=== PATIENT | male | born 1960 | race Caucasian/White ===

== ENCOUNTER 2018-01-19 19:39 | Inpatient (IN) | payer MEDICAID ==
[~2018-01-19] VITALS: Ht 165.1 cm; Wt 86.2 kg
[~2018-01-19 19:39] MED LIST: BACDS PO; BUS10 PO; CLA10 PO; NOR5 PO; PROL PO; SING10 PO
[2018-01-19 20:28] LABS: PLATELET COUNT 76 x10^3mcL (130-400); RED CELL DISTRIBUTION WIDTH 17.9 % (11.5-14.5)
[2018-01-19 20:31] LABS: CALCIUM 7.9 mg/dL (8.5-10.1); CARBON DIOXIDE 22.4 mmol/L (21-32); CHLORIDE SERUM 105 mmol/L (98-107); CREATININE SERUM 0.9 mg/dL (0.7-1.3); GFR1 > 60 mL/min; GLUCOSE SERUM 139 mg/dL (74-106); POTASSIUM SERUM 3.6 mmol/L (3.5-5.1); SODIUM SERUM 140 mmol/L (136-145)
[2018-01-19 20:35] LABS: ALKALINE PHOSPHATASE 53 U/L (46-116); ALT/SGPT 33 U/L (16-63); AMYLASE 43 U/L (25-115); AST/SGOT 34 U/L (15-37); BILIRUBIN TOTAL 0.55 mg/dL (0.20-1.00); LIPASE 235 IU/L (73-393)
[2018-01-19 20:45] LABS: BAND NEUTROPHIL 3 % (0-10); BASOPHIL 0 % (0-2); MONOCYTE 14 % (0-7); SEGMENTED NEUTROPHILS 71 % (37-75); rbc morphology (normal/abnorm) ABNORMAL (NORMAL)
[2018-01-19 23:02] LABS: UA SPECIFIC GRAVITY >=1.030 (1.005-1.035); microscopic required? YES; urine erythrocyte TRACE (NEGATIVE)
[2018-01-20 01:18] LABS: MAGNESIUM 1.7 mg/dL (1.8-2.4); PHOSPHOROUS 3.5 mg/dL (2.5-4.9)
[2018-01-20 01:26] LABS: FREE T4 0.73 ng/dL (0.76-1.46); T4(THYROXINE) 6.2 ug/dL (4.7-13.3)
[2018-01-20 01:28] LABS: T3 TOTAL 0.85 ng/mL
[2018-01-20 01:40] LABS: CHOLESTEROL/HDL RATIO 4.9
[2018-01-20 02:06] LABS: AMPHETAMINE QUAL UR NONE DETECTED (See below)
[2018-01-20 02:39] VITALS: BP 144/86
[2018-01-20 03:28] VITALS: BP 144/86
[2018-01-20 05:44] VITALS: BP 145/85
[2018-01-20 06:38] LABS: CALCIUM 8.1 mg/dL (8.5-10.1); CARBON DIOXIDE 24.1 mmol/L (21-32); CHLORIDE SERUM 105 mmol/L (98-107); CREATININE SERUM 0.8 mg/dL (0.7-1.3); GFR1 > 60 mL/min; GLUCOSE SERUM 111 mg/dL (74-106); MAGNESIUM 1.5 mg/dL (1.8-2.4); PHOSPHOROUS 3.2 mg/dL (2.5-4.9); POTASSIUM SERUM 3.8 mmol/L (3.5-5.1); SODIUM SERUM 140 mmol/L (136-145)
[2018-01-20 06:43] LABS: PLATELET COUNT 59 x10^3mcL (130-400); RED CELL DISTRIBUTION WIDTH 17.7 % (11.5-14.5)
[2018-01-20 08:48] VITALS: BP 139/80
[2018-01-20 11:02] LABS: MONOCYTE 16 % (0-7); SEGMENTED NEUTROPHILS 68 % (37-75)
[2018-01-20 11:03] LABS: BAND NEUTROPHIL 7 % (0-10); BASOPHIL 0 % (0-2); METAMYELOCTE 1 % (0-2); MYELOCYTE 1 % (0-2); rbc morphology (normal/abnorm) ABNORMAL (NORMAL)
[2018-01-20 11:04] LABS: tear drop cell (dacryocyte) 1+
[2018-01-20 11:05] LABS: PLATELET MORPHOLOGY PLATELETS DECREASED
[2018-01-20] MEDS ORDERED: LIBRAX1 CAP PO (11:59)
[2018-01-20 13:02] VITALS: BP 139/80
== END 2018-01-20 14:07 | disposition home or self-care (01) ==
LOC: ED 19:39 → MU 01-20 00:14
PROVIDERS: Emergency Medicine; Family Medicine
DX: K80.20 Calculus of gallbladder without cholecystitis without obstruction (principal); N17.0 Acute kidney failure with tubular necrosis; G92 Toxic encephalopathy; C95.10 Chronic leukemia of unspecified cell type not having achieved remission; T51.0X1A Toxic effect of ethanol, accidental (unintentional), initial encounter; F10.239 Alcohol dependence with withdrawal, unspecified; F10.220 Alcohol dependence with intoxication, uncomplicated; I10 Essential (primary) hypertension; E83.51 Hypocalcemia; E83.42 Hypomagnesemia; E78.1 Pure hyperglyceridemia; R80.9 Proteinuria, unspecified; J44.9 Chronic obstructive pulmonary disease, unspecified; Z87.891 Personal history of nicotine dependence; Z87.820 Personal history of traumatic brain injury; Z86.73 Personal history of transient ischemic attack (TIA), and cerebral infarction without residual deficits; Y90.7 Blood alcohol level of 200-239 mg/100 ml; Y92.009 Unspecified place in unspecified non-institutional (private) residence as the place of occurrence of the external cause
CPT/HCPCS: 83880; 84439; 94150; C9113; G0480; J2765; J3411; J3490; J7030; Q0092

== ENCOUNTER 2018-11-12 23:04 | Inpatient (IN) | payer OTHER ==
[~2018-11-12] VITALS: Ht 165.1 cm; Wt 85.0 kg
[~2018-11-12 23:04] MED LIST changes: +LIBRAX1 CAP PO
[2018-11-12 23:10] VITALS: Ht 165.1 cm; Wt 85.0 kg
--- NOTE | 2018-11-12 23:20 | NUR ---
PT PRESENTS TO ED BROUGHT IN BY FRIEND C/O CHEST PAIN. PT STATES THAT HE HAS A DRINKING PROBLEM AND BINGE DRINKS. PT STATES HX OF CARDIAC STENTS. PT HAS FLIGHT OF IDEAS AND IS SPEAKING NONLINEARLY. PT JUMPS AROUND AND IS UNABLE TO RECALL FULL STORY. PT ALSO STATES HE IS HEARING VOICES. PT DENIES ANY SUICIDAL OR HOMICIDAL IDEATION. PT ALSO STATES THAT THE VOICES ARE NOT TELLING HIM TO HURT HIMSELF OR ANYONE ELSE JUST TO "SHUT UP AND LISTEN" . PT CONNECTED TO ALL MONITORS AND APPEARS ANXIOUS WITH VISBLE SHAKING OF LEGS AND HANDS. PT STATES HIS CHEST PAIN IS 10/10 AND DOES NOT KNOW WHAT HE WAS DOING WHEN IT STARTED OR IF IT RADIATES. PT STATES HE SLEEPS ON HIS MOTHERS COUCH AND WAS BROUGHT IN BY A FRIEND. PT DOES NOT RECALL HOW MUCH HE HAD TO DRINK OR WHEN HIS LAST DRINK WAS BUT HE STATES THAT IT WAS TODAY. PT CONNECTED TO ALL MONITORS. AWAITING MSE. NAD AT THIS TIME
--- NOTE | 2018-11-12 23:30 | NUR ---
PT HAS DIMINISHED LUNG SOUNDS IN THE BASES WELL FINE CRACKLES HEARD IN THE BILATERAL UPPER LOBES
--- NOTE | 2018-11-12 23:51 | NUR ---
MD GAYTAN AT BEDSIDE FOR MSE
--- NOTE | 2018-11-13 00:01 | NUR ---
PT IS ALERT AND ORIENTED TO NAME, , SITUATION BUT DOES NOT KNOW THE YEAR OR WHAT HOSPITAL THIS IS
[2018-11-13 00:48] LABS: PLATELET COUNT 22 x10^3mcL (130-400); RED CELL DISTRIBUTION WIDTH 19.4 % (11.5-14.5)
[2018-11-13 00:50] LABS: CALCIUM 7.9 mg/dL (8.5-10.1); CARBON DIOXIDE 25.7 mmol/L (21-32); CHLORIDE SERUM 103 mmol/L (98-107); CREATININE SERUM 0.9 mg/dL (0.7-1.3); GFR1 > 60 mL/min; GLUCOSE SERUM 199 mg/dL (74-106); POTASSIUM SERUM 3.1 mmol/L (3.5-5.1); SODIUM SERUM 143 mmol/L (136-145)
[2018-11-13 00:55] LABS: ALBUMIN 3.9 g/dL (3.4-5.0); ALKALINE PHOSPHATASE 40 U/L (46-116); ALT/SGPT 47 U/L (16-63); AST/SGOT 39 U/L (15-37); BILIRUBIN TOTAL 0.6 mg/dL (0.20-1.00); TOTAL PROTEIN, SERUM 6.5 g/dL (6.4-8.2)
[2018-11-13 01:06] LABS: ATYPICAL LYMPH 2 %; MONOCYTE 32 % (0-7); SEGMENTED NEUTROPHILS 48 % (37-75)
[2018-11-13 01:09] LABS: PLATELET MORPHOLOGY PLATELETS DECREASED; rbc morphology (normal/abnorm) ABNORMAL (NORMAL); schistocyte (helmet cell) 1+; tear drop cell (dacryocyte) 1+
--- NOTE | 2018-11-13 01:51 | NUR ---
PT TAKEN TO RADIOLOGY
--- NOTE | 2018-11-13 02:14 | NUR ---
PT AMBULATING TO RESTROOM TO PROVIDE URINE SAMPLE
--- NOTE | 2018-11-13 02:37 | NUR ---
LAB AT BEDSIDE FOR BLOOD DRAW
[2018-11-13 03:04] LABS: UA SPECIFIC GRAVITY >=1.030 (1.005-1.035); microscopic required? YES; urine erythrocyte 1+ (NEGATIVE)
[2018-11-13 03:11] LABS: AMPHETAMINE QUAL UR NONE DETECTED (See below)
--- NOTE | 2018-11-13 05:25 | NUR ---
PT AXO X4 CURRENTLY AWARE OF THE DATE
--- NOTE | 2018-11-13 05:26 | NUR ---
PT STATES HE USES OXYGEN AT HOME AT NIGHT AT 2L NC
--- NOTE | 2018-11-13 05:30 | NUR ---
REPORT GIVEN TO TREY TURNER. PER TREY PLEASE WAIT A FEW MINUTES SO SHE CAN DO MED PASS.
[2018-11-13 05:33] LABS: MAGNESIUM 1.7 mg/dL (1.8-2.4); PHOSPHOROUS 3.9 mg/dL (2.5-4.9)
[2018-11-13 05:35] LABS: CHOLESTEROL/HDL RATIO 3.9
--- NOTE | 2018-11-13 06:19 | NUR ---
RECEIVED PT FROM ED VIA RONALD, ACCOMPANIED BY RN. NO SOB ON O2 2L VIA VT. PT SLEEPY. GARBLED SPEECH. REFUSED LAB DRAW THIS MORNING. PT STATES HE WANTS IT DONE AFTER BREAKFAST. IV TO RFA, NS INFUSING. SAFETY MEASURES IN PLACE. BED IN LOWEST POSITION. SIDE RAILS UP X2. DEMONSTRATED HOW TO USE THE CALL LIGHT. CALL LIGHT WITHIN REACH. INSTRUCTED PT TO CALL FOR ASSISTANCE WHEN HE WANTS TO GET UP TO USE THE BATHROOM FOR SAFETY.
[2018-11-13 06:20] VITALS: BP 144/83
--- NOTE | 2018-11-13 07:10 | NUR ---
RECEIVED BEDSIDE REPORT FROM FISH HATCHERY LABORER NURSE AT THIS TIME. PATIENT RESTING COMFORTABLY IN BED. NO APPARENT DISTRESS OR DISCOMFORT NOTED. BREATHING EVEN AND UNLABORED. NO RESPIRATORY DISTRESS NOTED. NO INDICATION OF CHEST PAIN/PRESSURE AT THIS TIME. IV PATENT AND INTACT. ALL QUESTIONS AND CONCERNS ADDRESSED. ALL NEEDS ATTENDED TO. WILL CONTINUE TO MONITOR
[2018-11-13 08:18] VITALS: BP 137/80
[2018-11-13 09:18] VITALS: BP 137/80
--- NOTE | 2018-11-13 10:00 | NUR ---
ALL MORNING MEDICATIONS ADMINISTERED AT THIS TIME. PATIENT TOLERATED WELL. NO APPARENT DISTRESS OR DISCOMFORT NOTED. ALL NEEDS ATTENDED TO. WILL CONTINUE TO MONITOR
--- NOTE | 2018-11-13 11:04 | NUR ---
PATIENT REQUESTING HOME MEDICATIONS. ASKED PATIENT WHAT MEDICATION HE IS TAKING AT HOME. PATIENT CANNOT RECALL MEDICATION OR DOSAGES. CALLED PATIENTS DAUGHTER DEV. PER DEV, SHE DOES NOT HAVE THE LIST IN FRONT OF HER. PROVIDED [place] NUMBER AND INFORMED HER IF SHE HAS ANY INFORMATION REGARDING HOME MEDICATIONS TO CALL BACK. SHE VERBALIZES SHE WILL. AWAITING CALL BACK AT THIS TIME
--- NOTE | 2018-11-13 12:25 | NUR ---
SPOKE TO KENNA JACK REGARDING ROUTE ADMINISTRATION FOR ATIVAN 1MG. PER KENNA JACK OKAY TO CHANGE ROUTE FROM NG TO PO VIA TELEPHONE ORDER. TELEPHONE ORDER READ BACK, CONFIRMED, AND FOLLOWED THROUGH. ALL NEEDS ATTENDED TO. WILL CONTINUE TO MONITOR
[2018-11-13 12:27] VITALS: BP 131/80
--- NOTE | 2018-11-13 13:47 | NUR ---
PATIENT C/O GENERALIZED BODY PAIN AT THIS TIME. PATIENT MEDICATED WITH NORCO PRN. PATIENT TOLERATED WELL. NO APPARENT DISTRESS OF DISCOMFORT NOTED. ALL NEEDS ATTENDED TO. WILL CONTINUE TO MONITOR
--- NOTE | 2018-11-13 17:30 | NUR ---
PATIENT SITTING UP ON SIDE OF BED EATING DINNER AT THIS TIME. PATIENT TOLERATING DIET WELL. NO APPARENT DISTRESS OR DISCOMFORT NOTED. ALL NEEDS ATTENDED TO. WILL CONTINUE TO MONITOR
[2018-11-13 17:41] VITALS: BP 144/79
--- NOTE | 2018-11-13 18:42 | NUR ---
PATIENT RESTING COMFORTABLY IN BED AT THIS TIME. NO APPARENT DISTRESS OR DISCOMFORT NOTED. IV PATENT AND INTACT. ALL QUESTIONS AND CONCERNS ADDRESSED. ALL NEEDS ATTENDED. SAFETY PRECAUTIONS MAINTAINED. WILL ENDORSE ALL CARE TO TAG MAKER NURSE.
--- NOTE | 2018-11-13 19:25 | NUR ---
RECEIVED PT RESTING IN BED, NO ACUTE DISTRESS NOTED. PT AOX4, DENIES TANG. PT REPORTS SLIGT DIZZINESS. EDUCATED PT THE S/E OF MEDICATION (LIBRIUIM), ENCOURAGED PT TO USE CALL LIGHT FOR ASSISTANCE TO ENSURE SAFETY. PT VERBALIZES UNDERSTANDING. PT HX OF ETOH ABUSE, SZ PRECAUTIONS IN PLACE. TELE #16, ST 108, DENIES CP. PULSES PALPABLE BILAT, DENIES NUMBNESS/TINGLING IN FEET. RESP EVEN AND UNLABORED ON RA, DENIES SOB. ABD SOFT, ROUND, REPORTS ABD PAIN LUQ (SHARP & INTERMITTENT) WILL MEDICATE PER ORDER, DENIES N/V/D. BOWEL SOUNDS ACTIVE X4 QUAD. PT DENIES BM SINCE ADMISSION. VPIDS FREELY. GENERALIZED WEAKNESS, AMB W/ CANE AT HOME. PT DEMONSTRATES SLOW/STEADY GAIT. SKIN INTACT. IV SITE TO THE RFA PATENT, NS @ 100ML/HR. NO REDNESS, SWELLING OR PAIN NOTED. ALL COMFRT AND SAFETY MEASURES PROVIDED FOR, CALL LIGHT WITHIN REACH, BED IN LOWEST POSITION, WILL CONTINUE TO MONITOR.
[2018-11-13 21:51] VITALS: BP 136/81
[2018-11-14] VITALS (8 sets, daily range): BP systolic 86–120; BP diastolic 48–69
--- NOTE | 2018-11-14 05:00 | NUR ---
PT RESTED IN INTERVALS DURING SHIFT, PT HAD EPISODES OF DRY HEAVING WITHOUT ACTUAL EMESIS ALTHOUGH NOW PATIENT VOMITING 4-5 SMALL PIECES OF UNDIGESTED [place]MELON (PER PT), MEDICATED PT WITH ZOFRAN AND MORPHINE, WILL MEDICATE PT WITH ATIVAN FOR ANXIETY. PT HAS EPISODES OF AGITATION THEN PT GOES BACK TO SLEEP. PT HAS INTERMITTENT SWEATING, NO TEMPERATURE NOTED DURING SHIFT. IV SITE REMAINS PATENT TO RFA NS @ 100ML/HR. NO REDNESS, SWELLING OR PAIN NOTED. ALL COMFORT AND SAFETY MEASURES PROVIDED FOR, CALL LIGHT WITHIN REACH, BED IN LOWEST POSITION, WILL CONTINUE TO MONITOR.
--- NOTE | 2018-11-14 05:30 | NUR ---
PT AGITATED AND ANXIOUS, TOSSING FROM SIDE TO SIDE. OBTAINED ORDER FOR ONE TIME DOSE OF ATIVAN, 1MG IVP. WILL MEDICATE ORDER.
--- NOTE | 2018-11-14 05:45 | NUR ---
PT DIAPHORETIC, SPOT CHECK PT SUGAR= 240, WILL CONTINUE TO MONITOR. RESIDENT MADE AWARE.
--- NOTE | 2018-11-14 06:00 | NUR ---
INFORMED RESIDENT OF THE PATIENT SUSTAINING 150-160'S HR, BLOOD PRESSURE 80'S/40'S. PT SWEATING AND LETHARGIC. RESIDENT WILL PUT IN ORDER FOR STAT EKG. WILL WAIT FOR RESULTS.
[2018-11-14 07:01] LABS: CALCIUM 8.7 mg/dL (8.5-10.1); CARBON DIOXIDE 16.7 mmol/L (21-32); CHLORIDE SERUM 102 mmol/L (98-107); GFR1 > 60 mL/min; GLUCOSE SERUM 305 mg/dL (74-106); POTASSIUM SERUM 3.7 mmol/L (3.5-5.1); SODIUM SERUM 138 mmol/L (136-145)
--- NOTE | 2018-11-14 07:15 | NUR ---
RECEIVED BEDSIDE REPORT FROM EPIC APPLICATION COORDINATOR NURSE. PATIENT RESTING COMFORTABLY IN BED. NO APPARENT DISTRESS OR DISCOMFORT NOTED. 2L NC IN PLACE AND TOLERATING WELL. NO RESPIRATORY DISTRESS NOTED AT THIS TIME. NO INDICATION OF SHORTNESS OF BREATH. PATIENT DENIES CHEST PAIN/PRESSURE. IV PATENT AND INTACT. BLOOD PRESSURE TAKEN AT THIS TIME 97/56 (74) HR 155. BOLUS INFUSING AT THIS TIME. ALL QUESTIONS AND CONCERNS ADDRESSED. ALL NEEDS ATTENDED TO. WILL CONTINUE TO MONITOR
[2018-11-14 07:26] LABS: PLATELET COUNT 10 x10^3mcL (130-400)
--- NOTE | 2018-11-14 07:57 | NUR ---
TIE BINDER GUERO MADE AWARE OF PATIENT WBC 36.1 AND PLT 10 AT THIS TIME. TIE BINDER GUERO TO GET A REPEAT OF LABS. AWAITING ORDER AT THIS TIME. PER KENNA JACK OKAY TO TELEPHONE ORDER CHANGE LIBRIUM ORDER FROM Q 12 PRN TO Q 8 SCHEDULED PER ETOH PROTOCOL. ORDER READ BACK, CONFIRMED, AND FOLLOWED THROUGH. WILL CONTINUE TO MONITOR
[2018-11-14 09:02] LABS: PLATELET COUNT 13 x10^3mcL (130-400); RED CELL DISTRIBUTION WIDTH 18.6 % (11.5-14.5)
--- NOTE | 2018-11-14 09:30 | NUR ---
KENNA JACK AWARE OF PATIENT WBC 41.8 AND PLT 13 AT THIS TIME. PER KENNA JACK SHE ORDERED BLOOD CULTURE AND CONSULTED DR FRANK. WILL PROCEED ORDERED. WILL CONTINUE TO MONITOR
[2018-11-14 09:45] LABS: SEGMENTED NEUTROPHILS 41 % (37-75)
[2018-11-14 09:46] LABS: ATYPICAL LYMPH 5 %; BAND NEUTROPHIL 2 % (0-10); BASOPHIL 0 % (0-2); MONOCYTE 51 % (0-7)
[2018-11-14 09:47] LABS: PATH REVIEW for HEMA YES; PLATELET MORPHOLOGY PLATELETS DECREASED
--- NOTE | 2018-11-14 10:00 | NUR ---
ALL MORNING MEDICATIONS ADMINISTERED AT THIS TIME. PATIENT TOLERATED MEDICATION WELL. NO ADVERSE EFFECTS NOTED. ALL NEEDS ATTENDED TO. WILL CONTINUE TO MONITOR
[2018-11-14 10:57] LABS: rbc morphology (normal/abnorm) ABNORMAL (NORMAL)
[2018-11-14 10:58] LABS: burr cell (echinocyte) 1+; ovalocyte/elliptocyte 1+
[2018-11-14 11:07] LABS: BAND NEUTROPHIL 5 % (0-10); BASOPHIL 0 % (0-2); MONOCYTE 47 % (0-7); PLATELET MORPHOLOGY PLATELETS DECREASED; SEGMENTED NEUTROPHILS 42 % (37-75); rbc morphology (normal/abnorm) ABNORMAL (NORMAL)
[2018-11-14 11:08] LABS: burr cell (echinocyte) 1+; ovalocyte/elliptocyte 1+
--- NOTE | 2018-11-14 13:00 | NUR ---
RECEIVED HOME MED LIST FROM PATIENTS BROTHRICHARD RODRÍGUEZ AT THIS TIME. MEDICATION REC UPDATED AT THIS TIME. SPOKE TO POLY PACKER AND HEAT SEALER GUERO TO CONTINUE PATIENT MEDICATION. AWAITING ORDERS AT THIS TIME. WILL CONTINUE TO MONITOR
[2018-11-14] MEDS ORDERED: HYDROXYUREA500 MG PO (13:02)
[2018-11-14] MEDS ORDERED: NOR5 PO (13:03)
[2018-11-14] MEDS ORDERED: TRAZODONE50 M1 PO (13:05)
[2018-11-14] MEDS ORDERED: SIMVASTATIN20 M1 PO (13:06)
[2018-11-14] MEDS ORDERED: FLOMAX0.4 MG PO (13:07)
[2018-11-14] MEDS ORDERED: METFORMIN HCL500 MG PO (13:07)
[2018-11-14] MEDS ORDERED: ENALAPRIL MALEA10 MG PO (13:08)
[2018-11-14] MEDS ORDERED: CLARITIN10 MG PO (13:09)
--- NOTE | 2018-11-14 14:09 | NUR ---
DR LIRIANO AT BEDSIDE REVIEWING POC WITH PATIENT AT THIS TIME. ALL QUESTIONS AND CONCERNS ADDRESSED. ALL NEEDS ATTENDED TO. WILL CONTINUE TO MONITOR
--- NOTE | 2018-11-14 14:27 | NUR ---
REPORTED TO KENNA JACK PATIENTS CHEST X-RAY RESULTS AT THIS TIME. NO NEW ORDERS MADE. ALL NEEDS ATTENDED TO. WILL CONTINUE TO MONITOR
--- NOTE | 2018-11-14 18:36 | NUR ---
PATIENT RESTING COMFORTABLY IN BED AT THIS TIME. NO APPARENT DISTRESS OR DISCOMFORT NOTED. IV PATENT AND INTACT. ALL QUESTIONS AND CONCERNS ADDRESSED SAFETY PRECAUTIONS MAINTAED. ALL NEEDS ATTENDED TO. WILL ENDORSE ALL CARE TO TRUCK PACKER NURSE
--- NOTE | 2018-11-14 18:47 | NUR ---
DR. FRANK AT BEDSIDE REVIEWING POC WITH PATIENT. ALL QUESTIONS AND CONCERNS ADDRESSED.
--- NOTE | 2018-11-14 19:25 | NUR ---
RECEIVED PT RESTING IN BED, NO ACUTE DISTRESS NOTED. PT AOX4, DENIES TANG. PT REPORTS SLIGHT DIZZINESS EARLIER WHEN GETTING UP, EDUCATED PT THE S/E OF MEDICATION (LIBRIUIM) AND OTHER BP MEDS, ENCOURAGED PT TO USE CALL LIGHT FOR ASSISTANCE TO ENSURE SAFETY. PT VERBALIZES UNDERSTANDING. PT HX OF ETOH ABUSE, SZ PRECAUTIONS IN PLACE. TELE #16, ST 120, DENIES CP. PULSES PALPABLE BILAT, DENIES NUMBNESS/TINGLING IN FEET. RESP EVEN AND UNLABORED ON 2L NC, DENIES SOB. ABD SOFT, ROUND, REPORTS ABD PAIN BILAT LQ ABD PAIN LIKE MUSCLE SORENESS. PT REPORTS HAVING MULTIPLE DRY HEAVING EPISODES. PAIN MAY BE DUE TO STRAINING OF ABD MUCLES. WILL MEDICATE PER ORDER, DENIES N/V/D. BOWEL SOUNDS ACTIVE X4 QUAD. PT REPORTS BM TODAY. VPIDS FREELY. GENERALIZED WEAKNESS, AMB W/ CANE AT HOME. PT UNSTABLE ON FEET AT THIS TIME, WILL IMPLEMENT SAFET YPRECUATIONS DURING SHIFT. SKIN INTACT. IV SITE TO THE RFA PATENT, NS @ 100ML/HR. NO REDNESS, SWELLING OR PAIN NOTED. ALL COMFRT AND SAFETY MEASURES PROVIDED FOR, CALL LIGHT WITHIN REACH, BED IN LOWEST POSITION, WILL CONTINUE TO MONITOR.
[2018-11-15] VITALS (8 sets, daily range): BP systolic 104–145; BP diastolic 54–74
--- NOTE | 2018-11-15 05:00 | NUR ---
PT RESTED IN INTERVALS DURING SHIFT, NO ACUTE CHANGES OCCURRING OVERNIGHT. PT HAD NO EPISODES OF VOMITING OR NATHAN HEAVING DURING SHIFT. PT REPORTS STOMACH PAIN HAS DECREASED SUBSTANTIALLY COMPARED TO LAST NIGHT. PT MEDICATED X1 WITH NORCO FOR STOMACH MUSCLE SORENESS. PT PROVIDED ONE DOSE OF LIBRIUM FOR AGITATION. PT HAD A BM THIS MORNING (DIARRHEA), DENIES PAIN WITH BM, PT VOIDED X2. DENIES DYSURIA. PT REMAINS ON 2LNC, DENIES SOB. IV SITE REMAINS PATENT, NS @ 100ML/HR. NO REDNESS, SWELLING OR PAIN NOTED. ALL COMFORT AND SAFETY MEASURES PROVIDED FOR, CALL LIGHT WITHIN REACH, BED IN LOWEST POSITION, WILL CONTINUE TO MONITOR.
[2018-11-15 06:20] LABS: CARBON DIOXIDE 27.8 mmol/L (21-32); CREATININE SERUM 1.4 mg/dL (0.7-1.3); POTASSIUM SERUM 4.1 mmol/L (3.5-5.1)
--- NOTE | 2018-11-15 07:30 | NUR ---
PT IS AAOX4. VERBALLY RESPONSIVE. FOLLOWS COMMANDS. DENIES H/A BUT STATES HE FEELS DIZZY. PT EDUCATED TO CALL FOR ASSISTANCE WHEN GETTING UP OUT OF BED. RESP EVEN AND UNLABORED. LUNG SOUNDS CTA BILATERALLY. ON 02 N/C AT 2 LPM. NO COUGH NOTED. ABDOMEN SOFT, NONTENDER, DISTENDED. BOWEL SOUNDS ACTIVE X4 QUADS. BM SOFT THIS A.M., DENIES DIARRHEA AT THIS TIME. DENIES N/V. PERIPHERAL PULSES PALPABLE. NO EDEMA NOTED. DENIES PAIN. TELEMONITOR [address] READING SINUS TACH 128. DENIES CHEST PAIN, PALPITATIONS AND PRESSURE. IVF RUNNING TO RFA. SITE WNL, NO INFILTRATION OR INFECTION NOTED. DENIES PAIN AT THIS TIME. PT IS SITTING UP AT BEDSIDE EATING BREAKFAST. JAMEL ALFORD NP MET WITH PT AND DISCUSSED POC. PT'S WBC ARE ELEVATED, JAMEL STATES THEY NEED TO FIND OUT WHY. ALSO PT'S ONCOLOGIST WILL BE CONTACTED AND ASKED TO REQUEST WHAT KIND OF TX SHOULD BE FOLLOWED UP WITH PT. CALL LIGHT WITHIN REACH. FALL PROTOCOL IN PLACE. BED IN LOWEST POSTION.
--- NOTE | 2018-11-15 10:38 | NUR ---
PT RECEIVING SKILLED P/T TRAINING AT THIS TIME. PT REFUSED TO WALK, STATED HE HIS DIZZY AND SICK.
--- NOTE | 2018-11-15 10:39 | NUR ---
PHYSICAL THERAPIST WAS ABLE TO GET PT UP OUT OF BED AND AMBULATED HIM WITH SAFETY BELT IN PLACE.
--- NOTE | 2018-11-15 11:20 | NUR ---
NOTED CBC RESULTS WITH H+H OF 5.8/17 PLT 10, FUR FEEDER ALFORD CALLED AND NOTIFIED, MADE AWARE PT DENIED ANY SIGN OF BLEEDING BUT IS TACHY IN 120S AND WAS IN 140S OVERNIGHT. PER FUR FEEDER WILL ORDER STAT REPEAT CBC TO COMFIRM RESULTS REQUESTED PT TO BE SL. NOTED ONLY MG RIDER INFUSING. ATTENDING NURSE MADE AWARE.
[2018-11-15 12:25] LABS: CARBON DIOXIDE 29.5 mmol/L (21-32); CHLORIDE SERUM 104 mmol/L (98-107); CREATININE SERUM 1.1 mg/dL (0.7-1.3); GFR1 > 60 mL/min; GLUCOSE SERUM 131 mg/dL (74-106); POTASSIUM SERUM 3.9 mmol/L (3.5-5.1); SODIUM SERUM 137 mmol/L (136-145)
[2018-11-15 12:47] LABS: RED CELL DISTRIBUTION WIDTH 18.7 % (11.5-14.5)
--- NOTE | 2018-11-15 12:49 | NUR ---
RECEIVED CRITICAL LAB VALUES FROM JEFFERSON IN LAB. REPORTED TO JAMEL ALFORD, TURBINE SUBASSEMBLER WBC 28.1, HGB 6.2, HCT 18, PLT 12. NO NEW ORDERS AT THIS TIME.
--- NOTE | 2018-11-15 13:30 | NUR ---
PT EDUCATED BY JAMEL ALFORD NP ON THE REASON PT WILL NEED A PRBC TRANSFUSION. CONSENT FOR BLOOD TRANSFUSION SIGNED AND PLACE IN PT'S CHART.
[2018-11-15 13:41] LABS: BAND NEUTROPHIL 2 % (0-10); BASOPHIL 0 % (0-2); MONOCYTE 44 % (0-7); PLATELET MORPHOLOGY PLATELETS DECREASED; SEGMENTED NEUTROPHILS 41 % (37-75); rbc morphology (normal/abnorm) ABNORMAL (NORMAL)
[2018-11-15 13:44] LABS: BAND NEUTROPHIL 1 % (0-10); BASOPHIL 0 % (0-2); MONOCYTE 65 % (0-7); SEGMENTED NEUTROPHILS 26 % (37-75)
[2018-11-15 13:45] LABS: PLATELET MORPHOLOGY PLATELETS DECREASED; rbc morphology (normal/abnorm) ABNORMAL (NORMAL)
[2018-11-15 14:05] LABS: PLATELET COUNT 12 x10^3mcL (130-400)
[2018-11-15 14:07] LABS: PLATELET COUNT 1011 x10^3mcL (130-400)
--- NOTE | 2018-11-15 16:17 | NUR ---
PT IS SITTING UP AT BEDSIDE VISITING WITH FAMILY. RESP EVEN AND UNLABORED. NO DISTRESS NOTED. CALL LIGHT WITHIN REACH.
--- NOTE | 2018-11-15 18:43 | NUR ---
PT RECEIVING BLOOD PRODUCT AT THIS TIME. RESP EVEN AND UNLABORED. NO DISTRESS NOTED. DENIES FEVER, CHILLS, BACK PAIN AND ITCHING. IV CATH TO RFA N/S LOCKED. SITE WNL. IV CATH TO LAC WITH BLOOD RUNNING. SITE WNL, NO S/S OF INFECTION OR INFILTRATION. TELE [address] READING SINUS TACH HR 128. CALL LIGHT WITHIN REACH. FALL PROTOCOL FOLLOWED. WILL ENDORSE ALL CARE TO NOC JOHNNY.
--- NOTE | 2018-11-15 19:40 | NUR ---
PT SEEN, RESTING IN BED, ALERT AND ORIENTED, DENIES HEADACHE BUT C/O OF DIZZINESS AT TIMES, BREATHING EVEN AND UNLABORED, LUNG SOUNDS CLEAR BUT DIMINISHED AT BASE, ON O2 2L VIA NC, NO RESP DISTRESS NOTED, ON TELE#16 ST, DENIES CHEST PAIN, PULSES PALPABLE, NO EDEMA NOTED, GENERALIZED WEAKNESS, ABD DISTENDED BUT SOFT WITH ACTIVE BS, NO BM AT THIS TIME, PT IS ONGOING WITH BLOOD TRANSFUSION, NO S&S OF ADVERSE REACTION NOTED, PT DENIES BLOODY STOOL, ECCHYMOSIS TO RUDDY, VOIDING FREELY, NO DISTRESS NOTED, WILL KEEP TO MONITOR.
--- NOTE | 2018-11-15 21:27 | NUR ---
FIRST UNIT OF PRBC BLOOD TRANSFUSION COMPLETED, NO S&S OF ADVERSE REACTION NOTED, VSS, TEMP-98.6, PULSE-116, BP-110/61, RR-20, SPO2:96%.
--- NOTE | 2018-11-15 21:42 | NUR ---
STARTING THE SECOND UNIT OF PRBC, TEMP-98.5, PULSE:111, RR:18, SPO2:96% ON ROOM AIR, LASIX 20MG PO AND BENADRYL 25 MG PO X 1 GIVEN, WILL CONTONUE TO MONITOR.
--- NOTE | 2018-11-15 21:57 | NUR ---
AFTER 15 MINS OF SECOND UNIT OF BLOOD TRANSFUSION, VSS, TEMP-98.6, HR:113, BP-145/73, RR:18, SPO2:96% ON ROOM AIR, NO S&S OF ADVERSE REACTION NOTED, WILL CONTINUE TO MONITOR.
[2018-11-16 00:50] VITALS: BP 123/69
--- NOTE | 2018-11-16 00:50 | NUR ---
2ND UNIT PRBC TRANSFUSION COMPLETED, TEMP-99.1, HR:120, BP-123/69, RR:18, SPO2:94%, NO S&S OF ADVERSE REACTION NOTED.
--- NOTE | 2018-11-16 00:55 | NUR ---
DR MASSEY MADE AWARE OF BLOOD TRANSFUSION COMPLETED.
--- NOTE | 2018-11-16 00:56 | NUR ---
PT C/O OF ABD PAIN, MORPHINE 2MG VIA IVP ADMINISTERED.
--- NOTE | 2018-11-16 05:53 | NUR ---
PT ASLEEP BUT EASILY AROUSABLE, SLEPT ON AND OFF WHOLE NIGHT, C/O OF ABD PAIN THROUGHOUT THE NIGHT, MEDICATED WITH NORCO PO AND MORPHINE IVP WITH MOD RELIEF, ABD DISTENDED BUT SOFT WITH ACTIVE BS, NO DISTRESS NOTED, WILL KEEP TO MONITOR.
[2018-11-16 06:21] VITALS: BP 99/60
[2018-11-16 06:40] LABS: CALCIUM 8.3 mg/dL (8.5-10.1); CARBON DIOXIDE 27.8 mmol/L (21-32); CHLORIDE SERUM 103 mmol/L (98-107); GFR1 > 60 mL/min; GLUCOSE SERUM 124 mg/dL (74-106); POTASSIUM SERUM 4.1 mmol/L (3.5-5.1); SODIUM SERUM 139 mmol/L (136-145)
--- NOTE | 2018-11-16 07:10 | NUR ---
RECEIVED PATIENT ASLEEP AROUSABLE, NO ACUTE DISTRESS NOTED. NO PAIN. TELE #16 NOTED. 2 IV SITE RFA AND LAC INTACT AND SL NOTED. POC EXPLAINED. CALL LIGHT WITHIN REACH.
--- NOTE | 2018-11-16 08:44 | NUR ---
LAB CALLED FOR WBC 35.7 AND PLTS COUNT 13, WILL INFORM GUERO PIERSON.
--- NOTE | 2018-11-16 09:27 | NUR ---
PATIENT WALKING IN HALLWAY TRY TO FIND THE DOCTOR, ASKING PATIENT TO GO BACK TO ROOM WILL SEE WHICH DOCTOR JUST SEE PATIENT. PATIENT BACK IN BED LATH TIER AT BEDSIDE TRY TO TAKE VITAL, HR 139 NOTED. ADMINISTERED ALL PO MEDS, NORCO 1 TAB FOR C/O 8/10 ABD PAIN AFTER EATING PER PATIENT. ROCEPIN IVPB INFUSING TO LAC PATENT, RFA IV LEAKING WHEN FLUSH, REMOVED. GAUZE APPLIED TO SITE. NO SWELLING NOTED. CALL LIGHT IN REACH. PER DR. BATES WILL SCHEDULE EGD IN AM.
[2018-11-16 09:54] VITALS: BP 143/78
[2018-11-16 11:53] LABS: BAND NEUTROPHIL 2 % (0-10); BASOPHIL 0 % (0-2); MONOCYTE 49 % (0-7); SEGMENTED NEUTROPHILS 39 % (37-75)
[2018-11-16 11:54] LABS: PLATELET MORPHOLOGY PLATELETS DECREASED
[2018-11-16 11:55] LABS: rbc morphology (normal/abnorm) ABNORMAL (NORMAL)
--- NOTE | 2018-11-16 12:03 | NUR ---
PATIENT RESTING IN BED NO COMPLAIN, OBTAINED CONSENT FOR EGD, PATIENT AWARE DR. BATES ALREADY SEEN AND EXPLAINED TO PATIENT, NO FURTHER QUESTIONS. PATIENT SIGNED. PER PATIENT METAL MELTER JUST CAME IN TO SEE PATIENT BUT STILL HAVE QUESTIONS AND WANT TO TALK TO DOCTOR. PER CN DR. MAXWELL WAS HERE TO SEE PATIENT. NO PROGRESS NOTED.
[2018-11-16 12:18] VITALS: BP 124/71
--- NOTE | 2018-11-16 12:40 | NUR ---
KENNA JACK WAS AWARE WBC 35.7 AND PLTS 13; PER GUERO LINDSEY INFORM HER TO TRANSFUSE NECESSARY, NO NEW ORDER AT THIS TIME.
--- NOTE | 2018-11-16 13:27 | NUR ---
PATIENT SAT UP AT SIDE OF BED C/O STOMACH HURT, PATIENT REPORT ONLY EAT HALF OF HIS MEAL AND GRAPES, NORCO 1 TAB PO AND DUE MEDS GIVEN. ABD PAIN 12/18. NEEDS MET. CONT TO MONITOR.
[2018-11-16 14:26] LABS: PLATELET COUNT 13 x10^3mcL (130-400)
--- NOTE | 2018-11-16 15:09 | NUR ---
ASSISTING PATIENT WITH SHOWER, GOWN AND BATH TOWEL AT BEDSIDE, PATIENT CHANGE HIS MIND, WANTED LATER STATED TIRED. CALL LIGHT WITHIN REACH.
--- NOTE | 2018-11-16 15:29 | NUR ---
DR. DAVIS WAS MADE AWARE FAMILY NOT AVAILABLE TO PARADI OPERATOR PATIENT.
[2018-11-16 16:10] VITALS: BP 132/67
--- NOTE | 2018-11-16 16:52 | NUR ---
GAVE REPORT TO NIGEL TURNER TO RESUME CARE.
--- NOTE | 2018-11-16 16:55 | NUR ---
ASSUMED CARE OF PATIENT. PT ASLEEP WITH NO ACUTE DISTRESS OR DISCOMFORT NOTED. FAMILY AT BEDSIDE.
--- NOTE | 2018-11-16 16:58 | NUR ---
PATIENT UP TO BATHROOM AND WANT TO SHOWER, PATIENT TOOK OFF TELE BOX LEFT ON TABLE. FAMILY MEMBER AT BEDSIDE. DUE MEDS GIVEN. NEEDS MET.
--- NOTE | 2018-11-16 17:17 | NUR ---
PT REFUSED [place] AT THIS TIME.
--- NOTE | 2018-11-16 17:41 | NUR ---
PT LINENS CHANGED FOR COMFORT. PT WITH NO ACUTE DISTRESS NOTED. ALL NEEDS MET AT THIS TIME. PT ABLE TO MAKE NEEDS KNOWN, CALL LIGHT WITHIN REACH. SAFETY MAINTAINED.
--- NOTE | 2018-11-16 18:42 | NUR ---
PT STABLE AT THIS TIME. NO ACUTE DISTRESS NOTED. ALL NEEDS TENDED TO THROUGHOUT SHIFT. WILL CONTINUE TO MONITOR AND ENDORSE CARE TO MECHANICAL INTEGRITY ENGINEER.
--- NOTE | 2018-11-16 19:08 | NUR ---
RECEIVED REPORT FROM NIGEL TURNER. ASSUMING ALL CARE
--- NOTE | 2018-11-16 19:30 | NUR ---
RECEIVED PT LAYING IN BED. PT IS A/OX4. SPEECH IS CLEAR. ABLE TO MAKE NEEDS KNOWN. PUPILS WITH BRISK RESPONSE TO LIGHT, 4 MM BILAT. DENIES TANG. EENT FREE OF DISCHARGE. ORAL MUCOSA PINK AND MOIST. NO JVD NOTED. BREATHING IS E/U ON RA. LUNGS SOUND CLEAR TO BUL AND DIMIN TO BLL. SYMMETRICAL CHEST EXPANSION NOTED. DENIES ANY SOB. S1/S2 HEART SOUNDS AUSCULTATED. CHEST WALL EQUAL AND SYMMETRICAL. NO S/S OF CP NOTED. PT ON TELE # [address] PALPABLE PULSE X3 EXTREMITIES. SKIN IS WARM AND DRY. NO EDEMA NOTED. LAC IV IN PLACE. CAP REFILL < [address] GENERALIZED WEAKNESS. NO JOINT SWELLING/DEFORMITY NOTED. ACTIVE FULL ROM X4 EXTREMITIES. PT IS ON CARDIAC DIET. NO N/V NOTED. ABD IS DISTENDED/FIRM/NONTENDER TO PALPATION. BOWEL SOUNDS ACTIVE X4 QUADRANTS. PT VOIDS FREELY VIA URINAL. SKIN IS INTACT. PT ABLE TO REPOSITION SELF INDEPENDENTLY. ECCHYMOSIS NOTED TO RUE. PT IS CALM AND COOPERATIVE. BED IN LOW POSITION. CALL LIGHT IN REACH. WILL CONT TO MONITOR
--- NOTE | 2018-11-16 20:53 | NUR ---
PT C/O ACHING ABD PAIN RATED 8/10. PT MEDICATED WITH MORPHINE IVP PER EMAR. WILL CONT TO MONITOR
[2018-11-16 20:54] VITALS: BP 112/71
--- NOTE | 2018-11-16 21:15 | NUR ---
SPOKE TO PT'S DAUGHTER, DEV, VIA TELEPHONE. UPDATED ON PT'S STATUS. ALL QUESTIONS/CONCERNS ADDRESSED AT THIS TIME
--- NOTE | 2018-11-16 22:35 | NUR ---
PT C/O FEELING SOB AFTER AMBULATING TO THE RESTROOM. PT PLACED ON 2 L NC. WILL CONT TO MONITOR
--- NOTE | 2018-11-17 | NUR ---
PT IS AWAKE/ALERT. PT AWARE HE IS TO REMAIN NPO AT THIS TIME. PT ALSO AWARE A STOOL SAMPLE IS NEEDED. BREATHING IS E/U ON 2 L NC. BED IN LOW POSITION. CALL LIGHT IN REACH. WILL CONT TO MONITOR
[2018-11-17 05:06] VITALS: BP 120/71
--- NOTE | 2018-11-17 05:07 | NUR ---
PT C/O LEFT-SIDED ACHING ABD PAIN RATED 9/10. PT MEDICATED WITH MORPHINE PER EMAR
--- NOTE | 2018-11-17 06:39 | NUR ---
REPORT GIVEN TO GI HVAC MECHANICAL ENGINEER, KJ. ALL QUESTIONS/CONCERNS ADDRESSED AT THIS TIME
[2018-11-17 07:02] LABS: CALCIUM 8.2 mg/dL (8.5-10.1); CARBON DIOXIDE 27.7 mmol/L (21-32); CHLORIDE SERUM 104 mmol/L (98-107); CREATININE SERUM 0.9 mg/dL (0.7-1.3); GFR1 > 60 mL/min; GLUCOSE SERUM 123 mg/dL (74-106); POTASSIUM SERUM 3.5 mmol/L (3.5-5.1); SODIUM SERUM 141 mmol/L (136-145)
--- NOTE | 2018-11-17 07:05 | NUR ---
REPORT GIVEN TO LOVE TURNER. ALL QUESTIONS/CONCERNS ADDRESSED AT THIS TIME. ENDORSING ALL CARE
[2018-11-17 07:45] LABS: RED CELL DISTRIBUTION WIDTH 17.9 % (11.5-14.5)
[2018-11-17 07:48] LABS: PLATELET COUNT 15 x10^3mcL (130-400)
--- NOTE | 2018-11-17 08:07 | NUR ---
PATIENT WENT DOWN FOR EGD AT THIS TIME, TAKEN DOWN VIA GURNEY. TELE GALLEY STRIPPER MADE AWARE.
--- NOTE | 2018-11-17 10:00 | NUR ---
PATIENT ARRIVED FROM EGD VIA RICHARD NURSE AT BEDSIDE. PATIENT DENIES PAIN AT THIS TIME. VITAL SIGNS STABLE: BP: 114/79 HR:114 MAP:94 TEMP:97.9 PULSE OX: 95% ON 2L. CALL LIGHT WITHIN REACH, BED IN LOW POSITION, WILL CONTINUE TO MONITOR FOR CHANGES.
[2018-11-17 10:47] LABS: BAND NEUTROPHIL 4 % (0-10); BASOPHIL 0 % (0-2); MONOCYTE 45 % (0-7); PLATELET MORPHOLOGY PLATELETS DECREASED; SEGMENTED NEUTROPHILS 41 % (37-75); rbc morphology (normal/abnorm) ABNORMAL (NORMAL)
--- NOTE | 2018-11-17 11:00 | NUR ---
CLOTH PRINTER HELPER GUERO AWARE PATIENTS WBC 46.9, PLT 15. WILL CONTINUE TO MONITOR FOR CHANGES.
[2018-11-17 12:38] VITALS: BP 137/74
--- NOTE | 2018-11-17 14:30 | NUR ---
ORANGE PARTICLES WERE NOTED IN THE URINE, FATBACK TRIMMER GUERO MADE AWARE. WILL CONTINUE TO MONITOR FOR CHANGES. REINIER LIGHT WITHIN REACH, BED IN LOW POSITION.
--- NOTE | 2018-11-17 14:35 | NUR ---
PATIENT SITTING UP AT BEDSIDE, NO ACUTE DISTRESS NOTED. PATIENT IS A/0X4, DENIES TANG. SEIZURE PRECAUTIONS IN PLACE. NO ACUTE DISTRESS NOTED. PATIENT DENEIS SOB, ON 2L NC. ABDOMEN APPEARS FIRM/DISTENDED, BS ACTIVE X4. PATIENT DENIES PAIN. NS IV INFUSING TO LAC AT 40ML/HR, IV SITE CDI & PATENT, NO S/S OF INFILTRATION. CALL LIGHT WITHIN REACH, BED IN LOW POSITION, WILL CONTINUE TO MONITOR PATIENT.
--- NOTE | 2018-11-17 17:47 | NUR ---
PATIENT IS SITTING UP IN BED, EATING. PATIENT STATES HES HAVING SOME INCREASE PAIN TO THE ABDOMEN /. PATIENT WANTS TO EAT FIRST BEFORE GETING PAIN MEDICATION, WILL CONTINUE TO MONITOR.
[2018-11-17 17:58] VITALS: BP 103/68
--- NOTE | 2018-11-17 18:35 | NUR ---
PATIENT RESTING IN BED, NO ACUTE DISTRESS NOTED. PATIENT C/O PAIN TO ABDOMEN 10/18, MEDICATED WITH NORCO PER PROTOCOL. REPOSITIONED PATIENT FOR COMFORT. SEIZURE PRECAUTION IN PLACE. PATIENT DENIES SOB, ON 2L NC. IV TO LAC SALINE LOCK, IV SITE CDI & PATENT, NO S/S OF INFILTRATION. CALL LIGHT WITHIN REACH, BED IN LOW POSITON, WILL CONTINUE TO MONITOR.
--- NOTE | 2018-11-17 19:59 | NUR ---
RECEIVED PATIENT IN BED AWAKE, ALERT AND ORIENTED WITH NO SIGN OF SEIZURE NOTED. BREATHING EASY AND NONLABOR ON O2 AT 2L VIA NC. TELE#[id number], NSR ON MONITOR DENIES CHESTPAIN. ABDOMEN ROUND AND DISTENDED WITH ACTIVE BS. IV TO LAC HEPLOCK AND FLUSHED WITH NS. WILL CONTINUE TO MONITOR. CALL LIGHT WITHIN REACH.
[2018-11-17 21:03] VITALS: BP 114/58
--- NOTE | 2018-11-17 23:09 | NUR ---
C/O ABDOMINAL PAIN AT SCALE OF 7/10 PER PATIENT, NORCO 1 TAB PO GIVEN PRESCRIBED. WILL CONTINUE TO MONITOR.
--- NOTE | 2018-11-18 00:03 | NUR ---
APPEARS SLEEPING WITH EYES CLOSED AFTER PAIN MEDS WAS GIVEN.
--- NOTE | 2018-11-18 01:01 | NUR ---
AWAKE C/O ABDOMINAL PAIN, PER PATIENT ALIA DID NOT WORK, PAGED DR MASSEY. MORPHINE 4MG IV ONCE ORDERED AND ADMINISTERED TO PATIENT PRESCRIBED. WILL CONTINUE TO MONITOR.
--- NOTE | 2018-11-18 04:22 | NUR ---
AWAKE THIS TIME C/O ABDOMINAL PAIN, NORCO 1 TAB PO GIVEN PRESCRIBED. WILL CONTINUE TO MONITOR.
--- NOTE | 2018-11-18 04:40 | NUR ---
IV TO LAC INFILTRATED AND REINSERTED NEW IV LINE TO RT HAND INTACT AND PATENT.
--- NOTE | 2018-11-18 05:10 | NUR ---
AWAKE MOST OF THE TIME C/O ABDOMINAL PAIN, MEDICATED PRESCRIBED. ALL NEEDS ATTENDED.
[2018-11-18 05:32] VITALS: BP 113/64
[2018-11-18 06:34] LABS: CALCIUM 8.3 mg/dL (8.5-10.1); CARBON DIOXIDE 30.8 mmol/L (21-32); CHLORIDE SERUM 105 mmol/L (98-107); CREATININE SERUM 1.1 mg/dL (0.7-1.3); GFR1 > 60 mL/min; GLUCOSE SERUM 123 mg/dL (74-106); POTASSIUM SERUM 3.7 mmol/L (3.5-5.1); SODIUM SERUM 142 mmol/L (136-145)
[2018-11-18 07:48] LABS: PLATELET COUNT 21 x10^3mcL (130-400); RED CELL DISTRIBUTION WIDTH 19.4 % (11.5-14.5)
--- NOTE | 2018-11-18 07:50 | NUR ---
PATIENT RESTING IN BED, NO ACUTE DISTRESS NOTED. DENIES SOB, PATIENT ON 2L NC, WHEEZING NOTED ON EXPIRATION. ABDOMEN APPEARS FIRM AND DISTENDED. PATIENT IS AMBULATORY WITH ASSIST. PATIENT C/O DISCOMFORT TO LEFT SIDE ABDOMEN. IV TO RH SALINE LOCK, IV SITE CDI & PATENT, NO S/S OF INFILTRATION. CALL LIGHT WITHIN REACH, BED IN LOW POSITION, WILL CONTIUE TO MONITOR FOR CHANGES.
[2018-11-18 09:28] VITALS: BP 120/67
--- NOTE | 2018-11-18 09:30 | NUR ---
SPLITTING MACHINE FEEDER GUERO AWARE PATIENTS WBCS INCREASED TO 51.2, H/H IS 7.0/21, AND PLT WAS 21. NO FURTHER ORDERS AT THIS TIME, WILL CONTINUE TO MONITOR PATIENT.
--- NOTE | 2018-11-18 10:22 | NUR ---
PATIENT WAS C/O MODERATE PAIN 11/17, JUNIOR LINUX ADMINISTRATOR GUERO AWARE. JUNIOR LINUX ADMINISTRATOR GUERO GAVE TORB FOR MORPHINE 1MG IV Q6HP (SEVERE PAIN) AND TRAMADOL 50MG PO Q8HP (MODERATE PAIN). ALL ORDERS NOTED AND CARRIED OUT. WILL F/U WITH PHARMACY.
--- NOTE | 2018-11-18 11:12 | NUR ---
PATIENT WAS C/O PAIN 11/17, MEDICATED PATIENT WITH MORPHINE PER PROTOCOL (SEE EMAR). REPOSITIONED PATIENT FOR COMFORT, EDUCATED PT ON PAIN MANAGEMENT. WILL CONTINUE TO MONITOR PATIENT, CALL LIGHT WITHIN REACH.
[2018-11-18 13:26] VITALS: BP 123/68
--- NOTE | 2018-11-18 13:50 | NUR ---
PATIENT IS RESTING IN BED COMFORTABLY, PATIENT DENIES PAIN. DENIES SOB, PATIENT ON 2L NC. CALL LIGHT WITHIN REACH, BED IN LOW POSITION, WILL CONTINUE TO MONITOR PATIENT.
[2018-11-18 14:00] LABS: BAND NEUTROPHIL 8 % (0-10); BASOPHIL 0 % (0-2); METAMYELOCTE 3 % (0-2); MONOCYTE 55 % (0-7); MYELOCYTE 11 % (0-2); SEGMENTED NEUTROPHILS 16 % (37-75); rbc morphology (normal/abnorm) ABNORMAL (NORMAL)
[2018-11-18 14:01] LABS: target cell (codocyte) 1+
[2018-11-18 14:05] LABS: PATH REVIEW for HEMA YES; PLATELET MORPHOLOGY LARGE PLATELET SEEN
--- NOTE | 2018-11-18 17:26 | NUR ---
PATIENT C/O ABDOMINAL PAIN 09/17, MEDICATED PATIENT WITH ULTRAM PER PROTOCOL (SEE EMAR), REPOSITION PATIENT FOR COMFORT. CALL LIGHT WITHIN REACH, BED IN LOW POSITION, WILL CONTINUE TO MONITOR PATIENT.
[2018-11-18 17:40] VITALS: BP 114/64
--- NOTE | 2018-11-18 19:00 | NUR ---
ENDORSED REPORT TO NIGHT RN.
--- NOTE | 2018-11-18 19:35 | NUR ---
RECEIVED PATIEN TIN BED WITH NO C/O ABDOMINAL PAIN AT THIS TIME. ON O2 AT 3L VIA NC SATTING AT 99%. TELE#16 ST ON MONITOR, DENIES CHEST DISCOMFORT. ABDOMEN ROUND AND TENDERNWITH ACTIVE BS. IV TO RH HEPLOCK FLUSHED WITH NS. WILL CONTINUE TO MONITOR. CALL LIGHT WITHIN REACH.
--- NOTE | 2018-11-18 20:40 | NUR ---
C/O ABDOMINAL PAIN AT SCALEM OF 8/10 PER PATIENT, MORPHINE 1MG VIP GIVEN PRESCRIBED. WILL CONTINUE TO MONITOR.
[2018-11-18 22:46] VITALS: BP 104/59
--- NOTE | 2018-11-19 01:00 | NUR ---
SLEEPING AFTER PAIN MEDS WAS GIVEN. WILL CONTINUE TO MONITOR.
--- NOTE | 2018-11-19 03:52 | NUR ---
AWAKE C/O ABDOMINAL PAIN MORPHINE 1MG IVP GIVEN PRESCRIBED. WILL CONTINUE TO MONITOR.
--- NOTE | 2018-11-19 05:25 | NUR ---
SLEPT FAIRLY C/O ABDOMINAL PAIN X2 THE ENTIRE SHIFT AND MEDICATED PRESCRIBED. ALL NEEDS ATTENDED. NO SIGMIFICANT CHANGES IN CONDITION NOTED.
[2018-11-19 06:10] VITALS: BP 103/66
[2018-11-19 07:40] LABS: CARBON DIOXIDE 29.7 mmol/L (21-32); CHLORIDE SERUM 101 mmol/L (98-107); CREATININE SERUM 1.2 mg/dL (0.7-1.3); GFR1 > 60 mL/min; GLUCOSE SERUM 118 mg/dL (74-106); SODIUM SERUM 140 mmol/L (136-145)
--- NOTE | 2018-11-19 07:57 | NUR ---
RECEIVED PATIENT FROM JOHNNY HARPER. PATIENT IN BED COMPLAINING OF ABDOMINAL PAIN IN RLQ. DIGITAL HARDWARE DESIGN ENGINEER GUERO IN TO SPEAK WITH PATIENT ABOUT PLAN OF CARE. DIGITAL HARDWARE DESIGN ENGINEER WAITING ON BOTH GI CONSULT WELL ONCOLOGY CONSULT. PATIENT MADE AWARE. WILL ADMINISTER PRN MORPHINE FOR ABDOMINAL PAIN AT THIS TIME.
[2018-11-19 07:59] VITALS: BP 111/58
[2018-11-19 08:17] LABS: RED CELL DISTRIBUTION WIDTH 18.5 % (11.5-14.5)
[2018-11-19 08:20] LABS: PLATELET COUNT 30 x10^3mcL (130-400)
--- NOTE | 2018-11-19 10:19 | NUR ---
PATIENT CONTINUES TO HAVE ABDOMINAL PAIN. PATIENT STATES HE HAD BOWEL MOVEMENT AND FEELING TESTICULAR PAIN. FOLLOW UP PRN MORPHINE 1 MG GIVEN IVP. WILL CONTINUE TO MONITOR. CALL LIGHT IN REACH.
[2018-11-19 11:11] LABS: BAND NEUTROPHIL 6 % (0-10); BASOPHIL 0 % (0-2); METAMYELOCTE 2 % (0-2); MONOCYTE 57 % (0-7); MYELOCYTE 6 % (0-2); SEGMENTED NEUTROPHILS 23 % (37-75)
[2018-11-19 11:14] LABS: PLATELET MORPHOLOGY PLATELETS DECREASED; rbc morphology (normal/abnorm) ABNORMAL (NORMAL)
[2018-11-19 11:15] LABS: target cell (codocyte) 1+
[2018-11-19 11:53] VITALS: BP 114/60
--- NOTE | 2018-11-19 13:11 | NUR ---
PATIENT IS IN BED SLEEPING. PATIENT WAS STILL COMPLAINING AT TESTICULAR PAIN, STATES THAT IT FEELS SORE. CLAIMS THAT IT WAS DUE TO AM MEDICATIONS. CHARGE NURSE BRAN AWARE. AM MEDICATIONS INCLUDED LASIX, ALDACTONE, AND TAMSULOSIN. WILL FU WITH PATIENT. KENNA JACK STATES THAT PATIENT IS CLEARED BY ONCOLOGY STANDPOINT PER DR LOMELI, AND THAT PATIENT NEEDS TO FU WITH PCP AND HIS ONCOLOGIST. AWAITING CLEARANCE FROM DR BATES, DR BATES HAS NOT YET ARRIVED TO UNIT. CALL LIGHT IN REACH AT THIS TIME.
--- NOTE | 2018-11-19 14:51 | NUR ---
PATIENT IN BED. STATES THAT THE PRN LIBRIUM WAS HELPFUL. CLAIMS THAT HIS PAIN IS NOW TOLERABLE. WILL CONTINUE TO MONITOR FOR ADDITIONAL ADBOMINAL PAIN AND STILL AWAITING EVAL FROM DR BATES. CALL LIGHT IN REACH AT THIS TIME.
[2018-11-19 16:05] VITALS: BP 119/64
--- NOTE | 2018-11-19 16:08 | NUR ---
PATIENT AWAKE IN BED. FURTHER EXPLAINATIONS OF MEDICATIONS AND TREATMENT PURPOSES GIVEN TO PATIENT. PATIENT VERBALIZES UNDERSTANDING AND STATES THAT HIS ADBOMINAL PAIN HAS IMPROVED. FURTHER PRN LIBRIUM OFFERED WHEN SCHEDULED AND PATIENT AGREES. CALL LIGHT IN REACH AT THIS TIME.
--- NOTE | 2018-11-19 18:28 | NUR ---
PATIENT IN BED RESTING. STATES PRIOR PAIN CONTROL EFFECTIVE. WILL ENDORSE TO ONCOMING NURSE ABOUT PRN LIBRIUM. WILL ALSO UPDATE ONCOMING NURSE ABOUT PLAN OF CARE. NO OTHER COMPLAINTS AT THIS TIME. CALL LIGHT IN REACH.
--- NOTE | 2018-11-19 19:20 | NUR ---
RECEIVED PT FROM DAY SHIFT RN IN NO ACUTE DISTRESS. AOX4. TELE #16, HR 115. LUNGS CLEAR ON RA. ABD DISTENDED/FIRM. C/O RLQ AND LUQ PAIN 5/10, WILL MEDICATE PER EMAR. IV TO RH, PATENT. BED IN LOWEST POSITION, 2 SIDE RAILS UP, CALL LIGHT IN REACH. INSTRUCTED TO CALL FOR ASSISTANCE.
[2018-11-19 20:57] VITALS: BP 96/47
[2018-11-20] VITALS (7 sets, daily range): BP systolic 101–118; BP diastolic 58–71
--- NOTE | 2018-11-20 00:40 | NUR ---
RESTING IN BED WITH EYES CLOSED. BREATHING E/U. NO ACUTE DISTRESS NOTED. WILL CONTINUE TO MONITOR.
--- NOTE | 2018-11-20 06:14 | NUR ---
PT C/O ABD PAIN THROUGHOUT NIGHT. WELL CONTROLLED WITH MORPHINE IVP. NO ACUTE DISTRESS NOTED. NO ACUTE CHANGES. WILL ENDORSE TO ONCOMING RN.
[2018-11-20 06:52] LABS: CALCIUM 8.6 mg/dL (8.5-10.1); CARBON DIOXIDE 29.3 mmol/L (21-32); CHLORIDE SERUM 102 mmol/L (98-107); CREATININE SERUM 1.2 mg/dL (0.7-1.3); GFR1 > 60 mL/min; GLUCOSE SERUM 109 mg/dL (74-106); POTASSIUM SERUM 3.3 mmol/L (3.5-5.1); SODIUM SERUM 142 mmol/L (136-145)
--- NOTE | 2018-11-20 07:30 | NUR ---
PT IS AAOX4. SEIZURE PRECAUTIONS IN PLACE DUE TO ETOH ABUSE. TELE MONITOR [address] READING SINUS TACH, HR 108. PT DENIES C/P AND PRESSURE. RESP EVEN AND UNLABORED. LUNG SOUNDS CTA THROUGH OUT ALL LOBES. ON R/A. ABDOMEN DISTENDED, SOFT, TENDER UPON PALPATION. DENIES N/V/D. SKIN CDI. PERIPHERAL PULSES PALPABLE. NO EDEMA NOTED. DENIES PAIN AT THIS TIME. IV CATH TO RH 22 G N/S LOCKED, FLUSHED, PATENT WITH GOOD BLOOD RETURN. SITE SHOWS NO S/S OF INFECTION OR INFILTRATION. CALL LIGHT WITHIN REACH. BED IN LOWEST POSITION.
--- NOTE | 2018-11-20 09:34 | NUR ---
REPORTED TO GUERO TURK NP PT'S HGB 6.7, WBC 36.9, K+ 3.3. GUERO STATED A CBC AND BLOOD TRANSFUSION WILL BE ORDERED.
[2018-11-20 10:11] LABS: RED CELL DISTRIBUTION WIDTH 19.2 % (11.5-14.5)
--- NOTE | 2018-11-20 11:23 | NUR ---
REPORTED TO GUERO TURK THAT PT'S CBC NOW 7.5. GUERO STATED THAT A TRANSFUSION IS NO LONGER NEEDED. PT MADE AWARE.
--- NOTE | 2018-11-20 11:30 | NUR ---
TRAMADOL 5OMG GIVEN FOR LOWER ABDOMINAL THROBBING PAIN 11/17. EXTRA FLUIDS GIVEN AND ENCOURAGED. PT REPOSITIONED FOR COMFORT. RESP EVEN AND UNLABORED. CALL LIGHT WITHIN REACH.
[2018-11-20 13:21] LABS: BAND NEUTROPHIL 7 % (0-10); METAMYELOCTE 2 % (0-2); MONOCYTE 56 % (0-7); MYELOCYTE 8 % (0-2); SEGMENTED NEUTROPHILS 23 % (37-75)
[2018-11-20 13:22] LABS: rbc morphology (normal/abnorm) ABNORMAL (NORMAL); target cell (codocyte) 1+
[2018-11-20 13:23] LABS: BAND NEUTROPHIL 8 % (0-10); METAMYELOCTE 3 % (0-2); MONOCYTE 53 % (0-7); SEGMENTED NEUTROPHILS 21 % (37-75)
[2018-11-20 13:23] LABS: PLATELET MORPHOLOGY PLATELETS DECREASED
[2018-11-20 13:24] LABS: MYELOCYTE 9 % (0-2); PLATELET MORPHOLOGY PLATELETS DECREASED; rbc morphology (normal/abnorm) ABNORMAL (NORMAL); target cell (codocyte) 1+
[2018-11-20 13:28] LABS: PLATELET COUNT 30 x10^3mcL (130-400)
[2018-11-20 13:34] LABS: PLATELET COUNT 31 x10^3mcL (130-400)
--- NOTE | 2018-11-20 13:49 | NUR ---
1MG MORPHINE IVP GIVEN FOR LOWER ABDOMINAL PAIN, "FEELS LIKE SOMEONE IS KICKING ME IN THE STOMACH." 12/18. RESP EVEN AND UNLABORED. VS: 97.6F, HR 115, RR 18, O2SAT 100 ON R/A. PT RECEIVING BREATHING TX AT THIS TIME. CALL LIGHT WITHIN REACH. WILL CONTINUE TO MONITOR.
--- NOTE | 2018-11-20 14:05 | NUR ---
PT IS RESTING IN BED BUT EASILY AROUSABLE TO VERBAL STIMULI. RESP EVEN AND UNLABORED. VS: 98.2, 112, 18, 106/61 (76), 97% ON R/A. WILL CONTINUE TO MONITOR.
--- NOTE | 2018-11-20 18:26 | NUR ---
RECEIVED ORDER FROM GUERO TURK, POTASSIUM 40MEQ PO X1 NOW FOR k+ LEVEL OF 3.3. ORDER NOTED AND CARRIED OUT. PT MADE AWARE. PT IS AAOX4. RESP EVEN AND UNLABORED. ON R/A AT THIS TIME. NO RESP DISTRESS NOTED. IV CATH TO RH N/S LOCKED, FLUSHED AND PATENT. SITE WNL. PT DENIES PAIN AT THIS TIME. CALL LIGHT WITHIN REACH. WILL ENDORSE ALL CARE TO NOC JOHNNY.
--- NOTE | 2018-11-20 18:47 | NUR ---
KLOR-CON 40 MEQ PO GIVEN FOR K+ OF 3.3. EXTRA FLUIDS ENCOURAGED. PT DENIES PAIN AT THIS TIME. PT IS SITTING UP IN BEDSIDE CHAIR EATING DINNER. NO DISTRESS NOTED. CALL LIGHT WITHIN REACH.
--- NOTE | 2018-11-20 19:45 | NUR ---
RECIEVED PT FROM DY SHIFT NURSE. PT IS A/O X4 ABLE TO FOLLWS COMMANDS. PT REMIANS ON SEIZURE PERCAUTIONS. PT IS MED SURG, PT DENIES ANY CHEST PAIN OR SOB AT THIS TIME. PT HAS PALPABLE PULSES,NO EDEMA NOTED. PT LUNG SOUNDS CLEAR ON RA, BREATHE SOUNDS EVEN AND UNLBORED. PT ABD IS DISTENDED, ACTIVE BOWEL SOUNDS, LAST BM 11/20. PT DEIES ANY ABD PAIN AT THIS TIME. PT IS AMBULATORY WITH MILD GENERAL WEAKNESS. PT DENIES PAIN AT THIS TIME. PT IV TO CDI. CALL LIGHT WITHIN REACH, WILL CONT TO MONITOR.
--- NOTE | 2018-11-20 20:50 | NUR ---
PT C/O OF PAIN 12/18 GENERALIZED. GAVE MORPHINE PER MD ORDER. WILL CONT TO MONITOR.
--- NOTE | 2018-11-21 00:20 | NUR ---
PT IS IN BED ASLEEP. EASILY AROUSABLE WITH VERBAL RESPONSE. PT BREATHING IS EVEN AND UNLABORED. PT SHOWS NO SIGNS OF PAIN. WILL CONT TO MONITOR. CALL LIGHT WITHIN REACH. SEIZURE PERCAUTIONS IN PLACE.
--- NOTE | 2018-11-21 02:26 | NUR ---
PT C/O OF ABD PAIN 12/18. GAVE TRAMADOL X1 PER MD ORDER. WILL CONT TO MONITOR . CALL LIGHT WITHIN REACH
[2018-11-21 06:02] VITALS: BP 110/63
[2018-11-21 06:29] LABS: CALCIUM 8.5 mg/dL (8.5-10.1); CARBON DIOXIDE 28.8 mmol/L (21-32); CHLORIDE SERUM 105 mmol/L (98-107); CREATININE SERUM 1.2 mg/dL (0.7-1.3); GFR1 > 60 mL/min; GLUCOSE SERUM 106 mg/dL (74-106); SODIUM SERUM 141 mmol/L (136-145)
--- NOTE | 2018-11-21 06:32 | NUR ---
PT SLEPT THROUGH MOST OF THE NIGHT. NO RESP DISTRESS NOTED. PT ON 02 2 L NC. PT C/O OF PAIN GAVE MORPHINE X1, TRAMADOL X1 PER MD ORDER. NO ACUTE CHANGES AT NIGHT. PT IV TO REMIANS CDI. PT DENIES ANY CHEST PAIN OR SOB AT THIS TIME. PT REMAINS ON SEIZURE PERCAUTIONS. CALL LIGHT IS WITHIN REACH.
--- NOTE | 2018-11-21 07:30 | NUR ---
PT IS AAOX4. DENIES H/A OR DIZZINESS. NORMAL S1S2 NOTED. RESP EVEN AND UNLABORED. LUNG SOUNDS DIMINISHED BILATERALLY. ON O2 N/C AT 2LPM. ABDOMEN SOFT, DISTENDED, TENDER UPON PALPATION. PT HAS C/O OF INTERMITTENT LOWER ABDOMEN PAIN. NO PAIN AT THIS TIME. PT DENIES N/V/D. SKIN CDI. PERIPHERAL PULSES PALPABLE. NO EDEMA NOTED. IV CATH N/S LOCKED TO RH, FLUSHED, PATENT, SITE WNL. NO S/S OF INFECTION NOTED. CALL LIGHT WITHIN REACH. BED IN LOWEST POSITION. SEIZURE PRECAUTIONS IN PLACE.
--- NOTE | 2018-11-21 07:33 | NUR ---
RECEIVED ORDER FROM GUERO TURK NP TO D/C GLYCOPHAGE BID. ORDER NOTED AND CARRIED OUT. PT MADE AWARE.
[2018-11-21 07:34] LABS: RED CELL DISTRIBUTION WIDTH 19.1 % (11.5-14.5)
[2018-11-21 07:35] VITALS: BP 106/62
--- NOTE | 2018-11-21 09:13 | NUR ---
REPORTED TO GUERO TURK NP THAT PT'S WBC=42.3. NO NEW ORDERS AT THIS TIME.
--- NOTE | 2018-11-21 09:20 | NUR ---
TYLENOL 650MG PO GIVEN FOR ABDOMINAL PAIN 09/17. PT AMBULATED IN HALLWAY WITHOUT ASSIST. NO C/O SOB OR DISTRESS. PT BACK IN BED. DUE MEDS GIVEN. CALL LIGHT WITHIN REACH.
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
--- NOTE | 2018-11-21 11:22 | NUR ---
Intervention/RDN Recommendation(s): 1. Continue on regular diet as tolerated.
--- NOTE | 2018-11-21 13:09 | NUR ---
TRAMADOL 50MG PO GIVEN FOR LOWER ABDOMINAL STREACHING, ACHING PAIN, 8/10. PT SITTING UP AT BEDSIDE. RESP EVEN AND UNLABORED. CALL LIGHT WITHIN REACH. WILL CONTINUE TO MONITOR.
[2018-11-21 15:40] LABS: BAND NEUTROPHIL 7 % (0-10); METAMYELOCTE 3 % (0-2); MONOCYTE 49 % (0-7); SEGMENTED NEUTROPHILS 18 % (37-75)
--- NOTE | 2018-11-21 15:40 | NUR ---
PT SLEEPING IN BED BUT EASILY AROUSABLE TO VERBAL STIMULI. RESP EVEN AND UNLABORED. NO DISTRESS NOTED. CALL LIGHT WITHIN REACH.
[2018-11-21 15:41] LABS: BLAST 0 % (0); MYELOCYTE 15 % (0-2); rbc morphology (normal/abnorm) ABNORMAL (NORMAL)
[2018-11-21 15:42] LABS: PLATELET MORPHOLOGY PLATELETS DECREASED
[2018-11-21 15:44] LABS: PLATELET COUNT 37 x10^3mcL (130-400)
[2018-11-21 16:47] VITALS: BP 105/60
--- NOTE | 2018-11-21 18:11 | NUR ---
TYLENOL 650MG PO GIVEN FOR ABDOMINAL PAIN 09/17. PT REPOSITIONED FOR COMFORT. CALL LIGHT WITHIN REACH. WILL CONTINUE TO MONITOR.
--- NOTE | 2018-11-21 18:51 | NUR ---
PT IS AAOX4. SITTING UP IN BED VISITING WITH FRIENDS. RESP EVEN AND UNLABORED. PT HAS C/O INTERMITTENT LOWER ABDOMINAL PAIN. STATE HE HAS PAIN BUT IT IS TOLERABLE AT THIS TIME. IV CATH N/S LOCKED TO , FLUSED, PATENT, SITE WNL. NO S/S OF INFECTION NOTED. CALL LIGHT WITHIN REACH. WILL ENDORSE ALL CARE TO LACY TURNER.
--- NOTE | 2018-11-21 19:50 | NUR ---
RECIEVED PT FROM JOHNNY TERESA. PT IS A/O X4 ABLE TO FOLLWS COMMANDS. PT REMAINS ON SEIZURE PERCAUTIONS. PT IS MED SURG, PT DENIES ANY CHEST PAIN OR SOB AT THIS TIME. PT HAS PALPABLE PULSES,NO EDEMA NOTED. PT LUNG SOUNDS CLEAR ON RA, BREATHE SOUNDS EVEN AND UNLBORED.NO RESP DISTRESS NOTED AT THIS TIME. PT ABD IS DISTENDED, ACTIVE BOWEL SOUNDS, LAST BM 11/21. PT DENIES ANY ABD PAIN AT THIS TIME. PT IS AMBULATORY WITH MILD GENERAL WEAKNESS. PT DENIES PAIN AT THIS TIME. PT IV TO CDI. CALL LIGHT WITHIN REACH, WILL CONT TO MONITOR.
[2018-11-21 20:13] VITALS: BP 116/66
--- NOTE | 2018-11-21 21:17 | NUR ---
PT C/O OF ABD PAIN. GAVE ULTRAM X1 PER MD ORDER. WILL CONT TO MONITOR. CALL LIGHT WITHIN REACH.
--- NOTE | 2018-11-22 00:14 | NUR ---
PT IS ASLEEP IN BED. PT RESPONDS TO VERBAL STIMULI. PT BREATHING EVEN AND UNLABORED. NO RESP DISTRESS NOTED. SEIZURE PERCAUTIONS IN PLACE. WILL CONT TO MONITOR, CALL LIGHT WITHIN REACH.
--- NOTE | 2018-11-22 03:08 | NUR ---
PT REPORTED HAVING PAIN ON ABD 09/17, REQUESTING TYLENOL. MEDICATED PER EMAR. CALL BUTTON WITHIN REACH. SAFETY PRECAUTIONS IN PLACE. WILL CONTINUE TO MONITOR.
--- NOTE | 2018-11-22 05:04 | NUR ---
PT SLEPT THROUGH MOST OF THE NIGHT. NO RESP DISTRESS NOTED. PT BREATHING EVEN AND UNLABORED. PT C/O OF PAIN GAVE ULTRAM X1, TYLENOL X1. NO ACUTE CHANGES AT NIGHT. PT IV TO REMIANS CDI. PT DENIES ANY CHEST PAIN OR SOB AT THIS TIME. PT REMAINS ON SEIZURE PERCAUTIONS. CALL LIGHT IS WITHIN REACH.
[2018-11-22 06:03] VITALS: BP 112/70
[2018-11-22 06:44] LABS: CALCIUM 8.8 mg/dL (8.5-10.1); CARBON DIOXIDE 28.9 mmol/L (21-32); CHLORIDE SERUM 106 mmol/L (98-107); CREATININE SERUM 1.2 mg/dL (0.7-1.3); GFR1 > 60 mL/min; GLUCOSE SERUM 101 mg/dL (74-106); POTASSIUM SERUM 4.4 mmol/L (3.5-5.1); SODIUM SERUM 142 mmol/L (136-145)
--- NOTE | 2018-11-22 07:07 | NUR ---
RECEIVED REPORT FROM ANTONETTE TURNER. PATIENT SLEEPING COMFORTABLY IN BED. NO NEEDS IDENTIFIED. SALINE LOCK TO RT HAND IS PATENT AND INTACT. NO REDNESS OR PAIN. PT ON ROOM AIR. NO DISTRESS NOTED. ALL QUESTIONS AND CONCERNS ADDRESSED.
--- NOTE | 2018-11-22 07:52 | NUR ---
SCOUT SNIPER GUERO IN TO SEE ANS ASSESS CARL. DISCUSSED DISCHARGE TODAY WITH FOLLOW UP WITH PATIENT'S ONCOLOGIST, ALCOHOL CESSATION, AND WEIGHT LIFTING RESTRICTIONS AT WORK. PATIENT VERBALIZED UNDERSTANDING AND ALL QUESTIONS AND CONCERNS WERE ADDRESSED.
[2018-11-22] MEDS ORDERED: SPIRONOLACTONE50 MG PO (08:50)
[2018-11-22 09:06] LABS: RED CELL DISTRIBUTION WIDTH 19.2 % (11.5-14.5)
[2018-11-22 09:07] LABS: PLATELET COUNT 40 x10^3mcL (130-400)
[2018-11-22 09:25] VITALS: BP 131/63
[2018-11-22 10:41] LABS: BAND NEUTROPHIL 9 % (0-10); BASOPHIL 0 % (0-2); METAMYELOCTE 4 % (0-2); MONOCYTE 45 % (0-7); MYELOCYTE 12 % (0-2); PLATELET MORPHOLOGY PLATELETS DECREASED; SEGMENTED NEUTROPHILS 21 % (37-75); rbc morphology (normal/abnorm) ABNORMAL (NORMAL)
[2018-11-22 13:37] VITALS: BP 131/63
--- NOTE | 2018-11-22 16:07 | NUR ---
PATIENT C/O ABD PAIN 12/18. INFORMED PT THAT ONLY TYLENOL IS AVAILABLE AND I WILL HAVE TO CONTACT MD IF HE WOULD LIKE SOMETHING ELSE. PT STATED THAT TYLENOL IS BETTER THAN NOTHING, HE WILL TAKE IT AND WAIT FOR ULTRAM AVAILABLILTY.
[2018-11-22 17:54] VITALS: BP 107/60
--- NOTE | 2018-11-22 18:40 | NUR ---
PT STABLE FOR DISCHARGE PER MD. DISCHARGE INSTRUCTIONS AND SUMMARY DISCUSSED. PATIENT VERBALIZED UNDERSTANDING AND AGREES TO FOLLOW UP WITH ONCOLOGIST AND PCP. ID BANDS CUT. IV REMOVED AND IV POLE CLEARED. PT ESCORTED TO LOBBY VIA WHEELCHAIR.
== END 2018-11-22 18:42 | disposition home or self-care (01) | DRG 241 ==
LOC: ED 23:04 → DU 11-13 04:56 → MU 11-20 13:19
PROVIDERS: Emergency Medicine; Internal Medicine; Internal Medicine Gastroenterology; ADMIT Internal Medicine
PROC: 30233N1 Transfusion of Nonautologous Red Blood Cells into Peripheral Vein, Percutaneous Approach (ICD-10-PCS; 2018-11-15)
PROC: 0DJ08ZZ Inspection of Upper Intestinal Tract, Via Natural or Artificial Opening Endoscopic (ICD-10-PCS; principal; 2018-11-17 08:30)
DX: K29.20 Alcoholic gastritis without bleeding (principal); G92 Toxic encephalopathy; C92.10 Chronic myeloid leukemia, BCR/ABL-positive, not having achieved remission; D69.6 Thrombocytopenia, unspecified; E83.42 Hypomagnesemia; E83.51 Hypocalcemia; K70.31 Alcoholic cirrhosis of liver with ascites; K70.9 Alcoholic liver disease, unspecified; F10.220 Alcohol dependence with intoxication, uncomplicated; F10.239 Alcohol dependence with withdrawal, unspecified; N39.0 Urinary tract infection, site not specified; E87.6 Hypokalemia; K80.20 Calculus of gallbladder without cholecystitis without obstruction; Y90.0 Blood alcohol level of less than 20 mg/100 ml; F41.9 Anxiety disorder, unspecified; I10 Essential (primary) hypertension; E78.1 Pure hyperglyceridemia; K76.6 Portal hypertension; K31.89 Other diseases of stomach and duodenum; J45.909 Unspecified asthma, uncomplicated; Z68.26 Body mass index [BMI] 26.0-26.9, adult; Z91.14 Patient's other noncompliance with medication regimen
CPT/HCPCS: 43235; 82962; 83880; 85060; C9113; G0378; G0480; J0696; J1200; J1610; J1885; J1940; J2060; J2250; J2270; J2310; J2405; J3010; J3411; J3475; J3490; J7030; J7040; J7050; J7620; P9016; Q0092; Q0163

== ENCOUNTER 2019-05-13 10:00 | Emergency (ER) | payer MEDICAID ==
[~2019-05-13] VITALS: Ht 162.6 cm; Wt 75.3 kg
[~2019-05-13 10:00] MED LIST changes: +CLARITIN10 MG PO; +ENALAPRIL MALEA10 MG PO; +FLOMAX0.4 MG PO; +HYDROXYUREA500 MG PO; +METFORMIN HCL500 MG PO; +SIMVASTATIN20 M1 PO; +SPIRONOLACTONE50 MG PO; +TRAZODONE50 M1 PO
[2019-05-13 10:02] VITALS: Ht 162.6 cm; Wt 75.3 kg
[2019-05-13 10:52] VITALS: BP 142/71
== END 2019-05-13 10:52 | disposition home or self-care (01) ==
LOC: ED 10:00
DX: L25.9 Unspecified contact dermatitis, unspecified cause (principal); J45.909 Unspecified asthma, uncomplicated; I10 Essential (primary) hypertension; E78.00 Pure hypercholesterolemia, unspecified; Z86.2 Personal history of diseases of the blood and blood-forming organs and certain disorders involving the immune mechanism; Z88.0 Allergy status to penicillin
CPT/HCPCS: J1200; J7512

== ENCOUNTER 2019-05-28 00:04 | Emergency (ER) | payer MEDICAID ==
[~2019-05-28] VITALS: Ht 165.1 cm; Wt 76.2 kg
[2019-05-28 00:11] VITALS: Ht 165.1 cm; Wt 76.2 kg
[2019-05-28 02:46] VITALS: BP 106/74
== END 2019-05-28 02:46 | disposition home or self-care (01) ==
LOC: ED 00:04
DX: L25.9 Unspecified contact dermatitis, unspecified cause (principal); J45.909 Unspecified asthma, uncomplicated; I10 Essential (primary) hypertension; E78.00 Pure hypercholesterolemia, unspecified; Z86.79 Personal history of other diseases of the circulatory system; Z88.0 Allergy status to penicillin
CPT/HCPCS: J1200; J7512

== ENCOUNTER 2019-05-31 16:10 | Emergency (ER) | payer MEDICAID ==
[~2019-05-31] VITALS: Ht 167.6 cm; Wt 78.0 kg
[2019-05-31 16:34] VITALS: Ht 167.6 cm; Wt 78.0 kg
[2019-05-31 18:38] LABS: UA SPECIFIC GRAVITY 1.025 (1.005-1.035); microscopic required? YES; urine erythrocyte 3+ (NEGATIVE)
[2019-05-31 19:45] VITALS: BP 115/67
== END 2019-05-31 19:45 | disposition home or self-care (01) ==
LOC: ED 16:10
PROVIDERS: Emergency Medicine
DX: N39.0 Urinary tract infection, site not specified (principal); J45.909 Unspecified asthma, uncomplicated; I10 Essential (primary) hypertension; E78.00 Pure hypercholesterolemia, unspecified; Z88.0 Allergy status to penicillin

== ENCOUNTER 2019-06-07 16:39 | Emergency (ER) | payer MEDICAID ==
[~2019-06-07] VITALS: Ht 165.1 cm; Wt 77.6 kg
[2019-06-07 16:52] VITALS: Ht 165.1 cm; Wt 77.6 kg
[2019-06-07 19:40] VITALS: BP 115/74
== END 2019-06-07 19:40 | disposition home or self-care (01) ==
LOC: ED 16:39
DX: R21 Rash and other nonspecific skin eruption (principal); L29.9 Pruritus, unspecified; J45.909 Unspecified asthma, uncomplicated; I10 Essential (primary) hypertension; E78.00 Pure hypercholesterolemia, unspecified; Z88.0 Allergy status to penicillin
CPT/HCPCS: J1100

== ENCOUNTER 2019-06-27 13:40 | Inpatient (IN) | payer OTHER ==
[~2019-06-27] VITALS: Ht 165.1 cm; Wt 78.0 kg
[2019-06-27 14:25] LABS: CALCIUM 8.5 mg/dL (8.5-10.1); CARBON DIOXIDE 23.4 mmol/L (21-32); CREATININE SERUM 2.3 mg/dL (0.7-1.3); POTASSIUM SERUM 3.9 mmol/L (3.5-5.1)
[2019-06-27 14:31] LABS: ALBUMIN 3.7 g/dL (3.4-5.0); BILIRUBIN TOTAL 0.6 mg/dL (0.20-1.00); TOTAL PROTEIN, SERUM 7.3 g/dL (6.4-8.2)
[2019-06-27 14:43] LABS: RED CELL DISTRIBUTION WIDTH 16.4 % (11.5-14.5)
[2019-06-27 14:46] LABS: PLATELET COUNT 10 x10^3mcL (130-400)
[2019-06-27 15:05] LABS: BAND NEUTROPHIL 4 % (0-10); BASOPHIL 0 % (0-2); MONOCYTE 54 % (0-7); SEGMENTED NEUTROPHILS 36 % (37-75)
[2019-06-27 15:07] LABS: PLATELET MORPHOLOGY PLATELETS DECREASED; rbc morphology (normal/abnorm) NORMAL (NORMAL)
[2019-06-27] MEDS ORDERED: PROAIR RES117 MCG/Ac INH ×2 (16:45→18:06)
[2019-06-27] MEDS ORDERED: V10 PO (16:47)
[2019-06-27] MEDS ORDERED: AMLODIPINE BESYL5 M2 PO ×2 (16:47→18:04)
[2019-06-27] MEDS ORDERED: CLARITIN10 MG PO (16:48)
[2019-06-27] MEDS ORDERED: IBU600 M2 PO ×2 (16:48→18:04)
[2019-06-27] MEDS ORDERED: SIMVASTATIN5 M2 PO ×2 (16:49→18:05)
[2019-06-27] MEDS ORDERED: FORTAMET500 M1 PO ×2 (16:49→18:04)
[2019-06-27] MEDS ORDERED: TRAZODONE50 M1 PO ×2 (16:50→18:05)
[2019-06-27] MEDS ORDERED: HYDROXYUREA500 MG PO ×2 (16:52→18:06)
[2019-06-27 17:11] LABS: CHOLESTEROL/HDL RATIO 4.5
[2019-06-27 17:16] LABS: FREE T4 1.09 ng/dL (0.76-1.46); FREE THYROXINE INDEX 2.2 ug/dL (1.4-4.5); T4(THYROXINE) 6.6 ug/dL (4.7-13.3)
[2019-06-27 17:17] LABS: T3 TOTAL 0.81 ng/mL
[2019-06-27 17:41] VITALS: BP 102/50
[2019-06-27 17:45] VITALS: Ht 165.1 cm; Wt 78.0 kg
[2019-06-27] MEDS ORDERED: FLUOCINOLONE 0.025% TOP (18:00)
[2019-06-27] MEDS ORDERED: LORATADINE10 M3 PO (18:04)
[2019-06-27] MEDS ORDERED: QVAR REDIHALE10.6 G1 INH (18:05)
[2019-06-27] MEDS ORDERED: HYDROXYZINE50 M1 PO (18:06)
[2019-06-27 20:24] VITALS: BP 101/48
[2019-06-27 21:45] VITALS: BP 101/48
[2019-06-28] VITALS (7 sets, daily range): BP systolic 105–118; BP diastolic 47–67
[2019-06-28 00:09] LABS: UA SPECIFIC GRAVITY >=1.030 (1.005-1.035); microscopic required? YES; urine erythrocyte 3+ (NEGATIVE)
[2019-06-28 00:19] LABS: AMPHETAMINE QUAL UR POSITIVE (See below)
[2019-06-28 07:09] LABS: CALCIUM 7.9 mg/dL (8.5-10.1); CARBON DIOXIDE 21.6 mmol/L (21-32); CREATININE SERUM 1.4 mg/dL (0.7-1.3); PHOSPHOROUS 3.7 mg/dL (2.5-4.9); POTASSIUM SERUM 3.6 mmol/L (3.5-5.1)
[2019-06-28 11:22] LABS: BASOPHIL % 0.3 % (0-2)
[2019-06-28 11:53] LABS: RED CELL DISTRIBUTION WIDTH 16.3 % (11.5-14.5)
[2019-06-28 12:50] LABS: PLATELET COUNT 10 x10^3mcL (130-400)
[2019-06-28 19:11] LABS: PLATELET COUNT 14 x10^3mcL (130-400)
[2019-06-28 19:24] LABS: BAND NEUTROPHIL 2 % (0-10); METAMYELOCTE 2 % (0-2); MONOCYTE 54 % (0-7); MYELOCYTE 1 % (0-2); SEGMENTED NEUTROPHILS 34 % (37-75)
[2019-06-28 19:27] LABS: PLATELET MORPHOLOGY PLATELETS DECREASED; rbc morphology (normal/abnorm) ABNORMAL (NORMAL); tear drop cell (dacryocyte) 1+
[2019-06-29 05:46] VITALS: BP 104/60
[2019-06-29 07:09] LABS: CALCIUM 8.3 mg/dL (8.5-10.1); CARBON DIOXIDE 23.6 mmol/L (21-32); CHLORIDE SERUM 105 mmol/L (98-107); GFR1 > 60 mL/min; GLUCOSE SERUM 93 mg/dL (74-106); PHOSPHOROUS 3.5 mg/dL (2.5-4.9); SODIUM SERUM 139 mmol/L (136-145)
[2019-06-29 08:37] LABS: RED CELL DISTRIBUTION WIDTH 15.9 % (11.5-14.5)
[2019-06-29 08:38] LABS: PLATELET COUNT 11 x10^3mcL (130-400)
[2019-06-29 08:39] VITALS: BP 117/63
[2019-06-29 12:24] LABS: BAND NEUTROPHIL 0 % (0-10); BASOPHIL 0 % (0-2); MONOCYTE 68 % (0-7); SEGMENTED NEUTROPHILS 27 % (37-75)
[2019-06-29 12:25] LABS: rbc morphology (normal/abnorm) ABNORMAL (NORMAL)
[2019-06-29 12:51] VITALS: BP 95/51
[2019-06-29 16:06] VITALS: BP 95/48
[2019-06-29 21:08] VITALS: BP 127/70
[2019-06-30 05:00] VITALS: BP 101/42
[2019-06-30 08:57] VITALS: BP 111/61
[2019-06-30 09:33] LABS: CALCIUM 8.6 mg/dL (8.5-10.1); CARBON DIOXIDE 25.3 mmol/L (21-32); CHLORIDE SERUM 105 mmol/L (98-107); GFR1 > 60 mL/min; GLUCOSE SERUM 193 mg/dL (74-106); MAGNESIUM 1.8 mg/dL (1.8-2.4); PHOSPHOROUS 3.9 mg/dL (2.5-4.9); RED CELL DISTRIBUTION WIDTH 15.8 % (11.5-14.5); SODIUM SERUM 139 mmol/L (136-145)
[2019-06-30 09:35] LABS: PLATELET COUNT 26 x10^3mcL (130-400)
[2019-06-30 11:54] LABS: BAND NEUTROPHIL 11 % (0-10); METAMYELOCTE 3 % (0-2); MONOCYTE 33 % (0-7); MYELOCYTE 3 % (0-2); SEGMENTED NEUTROPHILS 37 % (37-75)
[2019-06-30 11:55] LABS: PLATELET MORPHOLOGY PLATELETS DECREASED; rbc morphology (normal/abnorm) ABNORMAL (NORMAL); tear drop cell (dacryocyte) 1+
[2019-06-30 12:27] VITALS: BP 120/68
[2019-06-30 17:24] VITALS: BP 121/65
[2019-06-30 18:09] VITALS: BP 121/65
== END 2019-06-30 19:30 | disposition home or self-care (01) | DRG 203 ==
LOC: ED 13:40 → DU 16:01
PROVIDERS: Family Medicine; ADMIT Student in an Organized Health Care Education/Training Program
PROC: 30233R1 Transfusion of Nonautologous Platelets into Peripheral Vein, Percutaneous Approach (ICD-10-PCS; principal; 2019-06-27)
DX: R07.89 Other chest pain (principal); N17.0 Acute kidney failure with tubular necrosis; R16.2 Hepatomegaly with splenomegaly, not elsewhere classified; C93.10 Chronic myelomonocytic leukemia not having achieved remission; D69.6 Thrombocytopenia, unspecified; I10 Essential (primary) hypertension; J45.909 Unspecified asthma, uncomplicated; Y90.0 Blood alcohol level of less than 20 mg/100 ml; D64.9 Anemia, unspecified; F10.239 Alcohol dependence with withdrawal, unspecified; E78.5 Hyperlipidemia, unspecified; F15.10 Other stimulant abuse, uncomplicated; F32.9 Major depressive disorder, single episode, unspecified; F41.9 Anxiety disorder, unspecified; E78.00 Pure hypercholesterolemia, unspecified; Z79.899 Other long term (current) drug therapy; Z79.1 Long term (current) use of non-steroidal anti-inflammatories (NSAID); Z88.0 Allergy status to penicillin
CPT/HCPCS: 82962; 84439; 85060; 94150; G0378; G0480; J1885; J2270; J7030; J7040; J7050; J7620; P9035; Q0092; Q0163

== ENCOUNTER 2019-10-17 07:54 | Inpatient (IN) | payer OTHER ==
[~2019-10-17] VITALS: Ht 165.1 cm; Wt 79.0 kg
[~2019-10-17 07:54] MED LIST changes: +AMLODIPINE BESYL5 M2 PO; +FLUOCINOLONE 0.025% TOP; +FORTAMET500 M1 PO; +HYDROXYZINE50 M1 PO; +IBU600 M2 PO; +LORATADINE10 M3 PO; +PROAIR RES117 MCG/Ac INH; +QVAR REDIHALE10.6 G1 INH; +SIMVASTATIN5 M2 PO; +V10 PO
[2019-10-17 08:43] LABS: PLATELET COUNT 51 x10^3mcL (130-400); RED CELL DISTRIBUTION WIDTH 17.7 % (11.5-14.5)
[2019-10-17 08:59] LABS: CALCIUM 9.3 mg/dL (8.5-10.1); CARBON DIOXIDE 25.9 mmol/L (21-32); CHLORIDE SERUM 98 mmol/L (98-107); CREATININE SERUM 1.4 mg/dL (0.7-1.3); GFR1 55 mL/min; GLUCOSE SERUM 155 mg/dL (74-106); POTASSIUM SERUM 3.3 mmol/L (3.5-5.1); SODIUM SERUM 134 mmol/L (136-145)
[2019-10-17 09:03] LABS: ALBUMIN 4.2 g/dL (3.4-5.0); ALKALINE PHOSPHATASE 47 U/L (46-116); ALT/SGPT 26 U/L (16-63); AMYLASE 29 U/L (25-115); AST/SGOT 27 U/L (15-37); BILIRUBIN TOTAL 0.88 mg/dL (0.20-1.00); LIPASE 76 IU/L (73-393)
[2019-10-17 09:19] LABS: SEGMENTED NEUTROPHILS 42 % (37-75)
[2019-10-17 09:20] LABS: BAND NEUTROPHIL 4 % (0-10); MONOCYTE 53 % (0-7); rbc morphology (normal/abnorm) ABNORMAL (NORMAL)
[2019-10-17 09:30] LABS: TOTAL PROTEIN, SERUM 8.9 g/dL (6.4-8.2)
[2019-10-17] MEDS ORDERED: ATA25 PO (10:35)
[2019-10-17 14:38] VITALS: BP 122/71
[2019-10-17 16:49] VITALS: BP 133/80
[2019-10-17 20:52] VITALS: BP 127/66
[2019-10-17 22:03] LABS: AMPHETAMINE QUAL UR POSITIVE (See below)
[2019-10-18 07:13] LABS: CALCIUM 9.5 mg/dL (8.5-10.1); CARBON DIOXIDE 23.2 mmol/L (21-32); CREATININE SERUM 1.9 mg/dL (0.7-1.3); MAGNESIUM 2.3 mg/dL (1.8-2.4); POTASSIUM SERUM 4.6 mmol/L (3.5-5.1)
[2019-10-18 08:34] VITALS: BP 108/65
[2019-10-18 12:05] VITALS: BP 102/67
[2019-10-18 13:40] LABS: BAND NEUTROPHIL 2 % (0-10); BASOPHIL 0 % (0-2); MONOCYTE 50 % (0-7); SEGMENTED NEUTROPHILS 42 % (37-75); rbc morphology (normal/abnorm) ABNORMAL (NORMAL); tear drop cell (dacryocyte) 1+
[2019-10-18 13:41] LABS: PATH REVIEW for HEMA YES; PLATELET MORPHOLOGY GIANT PLATELET SEEN
[2019-10-18 17:57] VITALS: BP 125/77
[2019-10-18 21:42] VITALS: BP 112/64
[2019-10-18 22:45] VITALS: BP 105/60
[2019-10-19 05:48] VITALS: BP 102/55
[2019-10-19 07:28] LABS: CARBON DIOXIDE 18.5 mmol/L (21-32); CREATININE SERUM 3.9 mg/dL (0.7-1.3); MAGNESIUM 2.3 mg/dL (1.8-2.4); POTASSIUM SERUM 5.3 mmol/L (3.5-5.1)
[2019-10-19 09:18] VITALS: BP 117/52
[2019-10-19 11:04] VITALS: Ht 165.1 cm; Wt 79.0 kg
[2019-10-19 11:10] LABS: PLATELET COUNT 50 x10^3mcL (130-400); RED CELL DISTRIBUTION WIDTH 17.4 % (11.5-14.5)
[2019-10-19 11:12] LABS: PLATELET COUNT 56 x10^3mcL (130-400); RED CELL DISTRIBUTION WIDTH 17.1 % (11.5-14.5)
[2019-10-19 11:40] LABS: ALBUMIN 3.4 g/dL (3.4-5.0); BILIRUBIN DIRECT 0.41 mg/dL (0.0-0.2); BILIRUBIN TOTAL 0.8 mg/dL (0.20-1.00); CARBON DIOXIDE 18.7 mmol/L (21-32); POTASSIUM SERUM 5.5 mmol/L (3.5-5.1)
[2019-10-19 11:49] LABS: TOTAL PROTEIN, SERUM 8.6 g/dL (6.4-8.2)
[2019-10-19 11:51] LABS: CREATININE SERUM 4.2 mg/dL (0.7-1.3)
[2019-10-19 12:21] LABS: BAND NEUTROPHIL 2 % (0-10); METAMYELOCTE 1 % (0-2); MONOCYTE 50 % (0-7); MYELOCYTE 1 % (0-2); SEGMENTED NEUTROPHILS 36 % (37-75); rbc morphology (normal/abnorm) ABNORMAL (NORMAL)
[2019-10-19 12:22] LABS: BAND NEUTROPHIL 2 % (0-10); SEGMENTED NEUTROPHILS 31 % (37-75)
[2019-10-19 12:22] LABS: PLATELET MORPHOLOGY GIANT PLATELET SEEN; target cell (codocyte) 1+; tear drop cell (dacryocyte) 1+
[2019-10-19 12:23] LABS: MONOCYTE 52 % (0-7)
[2019-10-19 12:24] LABS: BASOPHIL 1 % (0-2); METAMYELOCTE 1 % (0-2); MYELOCYTE 1 % (0-2); rbc morphology (normal/abnorm) ABNORMAL (NORMAL); target cell (codocyte) 1+; tear drop cell (dacryocyte) 1+
[2019-10-19 12:25] LABS: PLATELET MORPHOLOGY GIANT PLATELET SEEN
[2019-10-19 15:12] VITALS: BP 106/58
[2019-10-19 19:32] VITALS: BP 113/49
[2019-10-19 23:24] VITALS: BP 107/68
[2019-10-20 05:19] LABS: BILIRUBIN TOTAL 0.9 mg/dL (0.20-1.00); CALCIUM 8.4 mg/dL (8.5-10.1); CARBON DIOXIDE 19.7 mmol/L (21-32); POTASSIUM SERUM 5.5 mmol/L (3.5-5.1); TOTAL PROTEIN, SERUM 7.4 g/dL (6.4-8.2)
[2019-10-20 05:32] LABS: CREATININE SERUM 4.9 mg/dL (0.7-1.3)
[2019-10-20 05:33] VITALS: BP 98/68
[2019-10-20 05:51] LABS: PLATELET COUNT 83 x10^3mcL (130-400)
[2019-10-20 06:24] LABS: BAND NEUTROPHIL 50 % (0-10); MONOCYTE 5 % (0-7); PLATELET MORPHOLOGY PLATELETS DECREASED; SEGMENTED NEUTROPHILS 40 % (37-75); rbc morphology (normal/abnorm) ABNORMAL (NORMAL)
[2019-10-20 06:44] LABS: PLATELET COUNT 32 x10^3mcL (130-400)
[2019-10-20 08:06] VITALS: BP 116/56
[2019-10-20 12:30] VITALS: BP 113/55
[2019-10-20 16:31] VITALS: BP 124/64
== END 2019-10-20 18:20 | disposition hospice, inpatient (51) | DRG 720 ==
LOC: ED 07:54 → DU 10:13 → MU 10:13 → DU 14:00 → IC 10-19 11:13 → DU 10-19 11:19 → IC 10-19 11:31 → DU 10-19 11:34 → IC 10-19 12:23
PROVIDERS: Emergency Medicine; Internal Medicine; Internal Medicine Gastroenterology; ADMIT Family Medicine; ATTEND Family Medicine
PROC: 5A09357 Assistance with Respiratory Ventilation, Less than 24 Consecutive Hours, Continuous Positive Airway Pressure (ICD-10-PCS; principal; 2019-10-19)
PROC: 5A09357 Assistance with Respiratory Ventilation, Less than 24 Consecutive Hours, Continuous Positive Airway Pressure (ICD-10-PCS; 2019-10-20)
DX: A41.9 Sepsis, unspecified organism (principal); J96.01 Acute respiratory failure with hypoxia; N17.0 Acute kidney failure with tubular necrosis; D61.818 Other pancytopenia; C93.10 Chronic myelomonocytic leukemia not having achieved remission; N18.3 Chronic kidney disease, stage 3 (moderate); E78.00 Pure hypercholesterolemia, unspecified; J45.909 Unspecified asthma, uncomplicated; F41.9 Anxiety disorder, unspecified; F32.9 Major depressive disorder, single episode, unspecified; D64.9 Anemia, unspecified; F15.10 Other stimulant abuse, uncomplicated; R79.89 Other specified abnormal findings of blood chemistry; I12.9 Hypertensive chronic kidney disease with stage 1 through stage 4 chronic kidney disease, or unspecified chronic kidney disease; E87.1 Hypo-osmolality and hyponatremia; E87.5 Hyperkalemia; Z20.828 Contact with and (suspected) exposure to other viral communicable diseases; Z88.0 Allergy status to penicillin; Z66 Do not resuscitate
CPT/HCPCS: 36600; 82962; 83880; 85060; 97110-GP; 97530-GP; G0378; G0480; J0696; J1940; J1956; J2060; J2270; J2405; J3480; J3490; J3535; J7030; J7042; J7050; J7626; Q0092; U0003-CS